=== PATIENT | male | born 1960 | race Caucasian/White ===

== ENCOUNTER 2018-05-03 21:29 | Inpatient (IN) | payer MEDICAID ==
[2018-05-03] MEDS ORDERED: IPRATROPIUM/ALBUTEROL 3 ML DEYVIAL IH ONE (22:16)
--- NOTE | 2018-05-03 22:16 | EDPHY ---
H & P Stated Complaint: wants condom cath and IV lasix Time Seen by Provider: 05/03/18 22:04 HPI/ROS: CHIEF COMPLAINT: Short of breath HISTORY OF PRESENT ILLNESS: This is a 57-year-old male who is transferred from [facility] to the emergency department by ambulance. He tells me that he was hospitalized at [facility] for 3 weeks last month, discharged 1 week ago to [facility]. Apparently was hospitalized for CHF/respiratory failure. He tells me that he was intubated during that hospitalization. Since his arrival at [facility] he states that he has had an increase in his weight , increase in abdominal girth, increase in lower extremity edema, and worsening shortness of breath. He denies chest pain, cough, nasal congestion. REVIEW OF SYSTEMS: A ten system review of systems was performed and is negative with the exception of the items mentioned in the HPI. Past medical history: 1. CHF 2. Atrial fibrillation 3. COPD 4. Morbid obesity 5. Bipolar disease 6. Chronic LE wounds 7. IDA 8. 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 He has no local PCP. Quit smoking cigarettes 15 years ago but resumed smoking 3 days ago. General Appearance: Alert. Vital signs reviewed. Heart rate 102, respiratory 20, blood pressure 118/99, oxygen saturation 94%. Eyes: Pupils equal and round, no conjunctival injection, no discharge. Anicteric. ENT, Mouth: Mucous membranes are moist, no oropharyngeal erythema or edema. Neck: No lymphadenopathy, supple. Respiratory: Lungs sounds are distant, no wheezes, rales, or rhonchi. Cardiovascular: Slightly tachycardic; 2/6 systolic murmur, rub, or gallop. Gastrointestinal: Abdomen is obese and mildly diffusely tender without guarding. Bowel sounds are present. Unable to evaluate for organomegaly due to his body habitus. Skin: Warm and dry, no rashes on exposed skin, normal color. Back: Nontender to palpation over the thoracolumbar spine. No CVAT. Extremities: Dressings on both LEs with erythema visible at top of dressings ( below knee). Neurological: Alert and oriented. Moving all four extremities easily and equally. LYLE. EOMI. Facial expressions symmetric. Psychiatric: Normal affect. No agitation. - Personal History Current Tetanus/Diphtheria Vaccine: Yes - Medical/Surgical History Hx Asthma: No Hx Chronic Respiratory Disease: Yes Hx Diabetes: No Hx Cardiac Disease: Yes Hx Renal Disease: No Hx Cirrhosis: No Hx Alcoholism: No Hx HIV/AIDS: No Hx Splenectomy or Spleen Trauma: No Other PMH: CHF, COPD, A fib - Social History Smoking Status: Current every day smoker Constitutional: Initial Vital Signs Temperature (C) 36.5 C 05/03/18 21:34 Heart Rate 102 H 05/03/18 21:34 Respiratory Rate 20 05/03/18 21:34 Blood Pressure 118/99 H 05/03/18 21:34 O2 Sat (%) 94 05/03/18 21:34 O2 Delivery Mode Nasal Cannula O2 (L/minute) 3 Allergies/Adverse Reactions: latex Allergy (Verified 05/03/18 21:38) Penicillins Allergy (Verified 05/03/18 21:38) Home Medications: Medication Instructions Recorded Albuterol [Proventil Inhaler HFA 2 puffs IH Q3HRS PRN 05/04/18 (*)] Carvedilol [Coreg (*)] 25 mg PO BIDMEAL 05/04/18 Furosemide [Lasix] 40 mg PO BID 05/04/18 Gabapentin [Neurontin 300 MG (*)] 300 mg PO HS 05/04/18 Haloperidol [Haldol 5 MG (*)] 5 mg PO BID 05/04/18 Levalbuterol 1.25 mg [Xopenex 1.25 mg IH Q8HRS PRN 05/04/18 1.25MG Neb (*)] Lisinopril [Zestril 20 mg (*)] 20 mg PO Q2D 05/04/18 Melatonin [Melatonin 3 MG (*)] 3 mg PO HS 05/04/18 Mometasone 220Mcg Inhaler [Asmanex 2 puffs IH BID 05/04/18 Inh (*)] Omeprazole 20 mg PO DAILY 05/04/18 Pregabalin [Lyrica] 25 mg PO BID 05/04/18 Rivaroxaban [Xarelto] 20 mg PO DAILY 05/04/18 Sennosides [Senna Lax] 8.6 mg PO BID 05/04/18 Sodium Cl Nasal [[place] (*)] 2 spray NS Q2HRS PRN 05/04/18 Tiotropium Inhaler [Spiriva 2 puffs IH DAILY 05/04/18 Handihaler] oxyCODONE IR [Oxycodone Ir (*)] 5 - 10 mg PO Q4HRS PRN 05/04/18 Medical Decision Making - Diagnostics EKG Interpretation: EKG interpreted by ED physician. It shows atrial fibrillation, rate 85. ED Course/Re-evaluation: 57 year old male with multiple medical problems, recently admitted to [facility] after an admission at [facility], during which he was treated for sepsis due to LLE cellulitis and metabolic encephalopathy. I was able to review their records in [facility]. Patient tells me that he was intubated during that admission, but I find no evidence of such. He is concerned about worsening CHF. He is on Lasix 40 PO BID. He received dose of Lasix 40 mg IV in ED. Chest xray shows bilateral consolidation--effusion vs atalectasis vs pneumonia, per radiology report. Patient with evidence of CHF will be admitted for diuresis, further evaluation. Acuity of CHF not clear--he has history of chronic systolic heart failure. BNP tonight is 3930, it was over 5000 at [facility]. Oxygenation acceptable on NCO2. He uses 2-3 L at baseline, seems to be doing fine on same. No evidence of infection--he does not meet sepsis criteria and I do not suspect pneumonia. Admitting physician ordering respiratory PCR. Differential Diagnosis: Shortness of breath including but not limited to pulmonary infectious process, COPD, asthma, pulmonary embolus and congestive heart failure. - Data Points Laboratory Results: Laboratory Results 05/03/18 22:30 05/03/18 22:30 Medications Given: Acetaminophen (Tylenol) 650 mg PO Q4HRS PRN PRN Reason: Pain, Mild/Fever, Can Take PO Stop: 10/30/18 23:10 Last Admin: 05/04/18 21:01 Dose: 650 mg Albuterol (Proventil Neb) 3 ml IH Q2HRS PRN PRN Reason: Short of Breath/Dyspnea Stop: 10/31/18 01:46 Last Admin: 05/05/18 06:48 Dose: 3 ml Calcium Carbonate (Tums) 500 - 1,000 mg PO Q2H PRN PRN Reason: INDIGESTION Stop: 11/02/18 19:25 Last Admin: 05/06/18 19:33 Dose: 1,000 mg Carvedilol (Coreg) 25 mg PO BIDMEAL UZIEL Stop: 11/01/18 17:59 Last Admin: 05/08/18 09:41 Dose: 25 mg Diphenhydramine HCl (Benadryl) 25 mg PO Q6HRS PRN PRN Reason: Itching Stop: 10/31/18 03:27 Last Admin: 05/04/18 21:01 Dose: 25 mg Furosemide (Lasix Injection) 40 mg IVP BID@0900,1500 UZIEL Stop: 10/31/18 08:59 Last Admin: 05/08/18 09:43 Dose: 40 mg Gabapentin (Neurontin) 300 mg PO HS UZIEL Stop: 11/01/18 20:59 Last Admin: 05/07/18 20:19 Dose: 300 mg Lisinopril (Zestril) 20 mg PO Q2D UZIEL Stop: 11/01/18 09:44 Last Admin: 05/08/18 09:42 Dose: 20 mg Melatonin (Melatonin) 3 mg PO HS UZIEL Stop: 11/01/18 20:59 Last Admin: 05/07/18 20:19 Dose: 3 mg Olanzapine (Olanzapine) 5 mg PO BID UZIEL Stop: 11/03/18 20:59 Last Admin: 05/08/18 09:42 Dose: 5 mg Oxycodone HCl (Oxycodone Ir) 5 - 10 mg PO Q4HRS PRN PRN Reason: Pain, Breakthrough Stop: 05/15/18 09:38 Last Admin: 05/07/18 20:19 Dose: 5 mg Pantoprazole Sodium (Protonix) 40 mg PO DAILY UZIEL Stop: 11/02/18 08:59 Last Admin: 05/08/18 09:41 Dose: 40 mg Pregabalin (Lyrica) 25 mg PO BID UZIEL Stop: 11/01/18 09:44 Last Admin: 05/08/18 09:41 Dose: 25 mg Rivaroxaban (Xarelto) 20 mg PO DAILY UZIEL Stop: 11/01/18 09:44 Last Admin: 05/08/18 09:41 Dose: 20 mg Senna (Senokot) 1 tab PO BID UZIEL Stop: 11/01/18 20:59 Last Admin: 05/08/18 09:41 Dose: 1 tab Spironolactone (Aldactone) 12.5 mg PO DAILY [facility] Stop: 11/01/18 08:59 Last Admin: 05/08/18 09:42 Dose: 12.5 mg Discontinued Medications Albuterol/Ipratropium (Duoneb) 3 ml IH EDNOW ONE Stop: 05/03/18 22:17 Last Admin: 05/03/18 22:25 Dose: 3 ml Carvedilol (Coreg) 25 mg PO ONCE ONE Stop: 05/05/18 09:43 Last Admin: 05/05/18 10:42 Dose: 25 mg Furosemide (Lasix Injection) 40 mg IVP EDNOW ONE Stop: 05/03/18 22:48 Last Admin: 05/03/18 23:49 Dose: 40 mg Haloperidol (Haldol) 5 mg PO BID UZIEL Stop: 11/01/18 01:44 Last Admin: 05/07/18 09:33 Dose: 5 mg Melatonin (Melatonin) 3 - 6 mg PO HS PRN PRN Reason: Sleep/Insomnia Stop: 11/01/18 01:45 Last Admin: 05/05/18 01:59 Dose: 6 mg Mometasone Furoate (Asmanex) 2 puffs IH BID UZIEL Stop: 11/01/18 09:44 Last Admin: 05/06/18 09:14 Dose: Not Given Oxycodone HCl (Oxycodone Ir) 5 - 10 mg PO Q4HRS PRN PRN Reason: Pain, Severe Able to Take PO Stop: 05/14/18 02:38 Last Admin: 05/04/18 21:00 Dose: 10 mg Tiotropium [place] (Spiriva Handihaler) 18 mcg IH DAILY [facility] Stop: 11/01/18 09:44 Last Admin: 05/06/18 09:14 Dose: Not Given Point of Care Test Results: Chemistry 05/03/18 22:32 POC Troponin I 0.01 ng/mL ng/mL (0.00-0.08) Departure - Departure Disposition: [facility] Acute Clinical Impression: Congestive heart failure (CHF) Qualifiers: Heart failure type: combined systolic and diastolic Heart failure chronicity: acute on chronic Qualified Code(s): I50.43 - Acute on chronic combined systolic (congestive) and diastolic (congestive) heart failure Condition: Fair
[2018-05-03 22:39] LABS: PLATELET COUNT 198 10^3/uL (150-400)
[2018-05-03] MEDS ORDERED: FUROSEMIDE 40 MG/4 ML VIAL IVP ONE (22:47)
[2018-05-03] MEDS ORDERED: ONDANSETRON DISINTEGRATING 4 MG TAB PO PRN (23:11)
[2018-05-03] MEDS ORDERED: ONDANSETRON 4 MG/2 ML VIAL IVP PRN (23:11)
--- NOTE | 2018-05-03 23:30 | CPEKG ---
Test Reason : OPEN Blood Pressure : / mmHG Vent. Rate : 085 BPM Atrial Rate : 000 BPM P-R Int : 340 ms QRS Dur : 183 ms QT Int : 409 ms P-R-T Axes : 000 252 061 degrees QTc Int : 487 ms Atrial fibrillation RBBB and LAFB Confirmed by Cammie Roman ([id number]) on 05/03/2018 11:30:04 PM Referred By: CAMMIE ROMAN Confirmed By:Cammie Roman
[2018-05-03] MEDS: ACETAMINOPHEN 325 MG TAB PO PRN (23:48)
--- NOTE | 2018-05-04 01:36 | PDGENHP ---
History and Physical - Chief Complaint Swelling, shortness of breath - History of Present Illness 57 yo morbidly obese M w/ HFrEF, chronic LE wounds, COPD, CHRF, AF, and BPD presents with complaints of swelling and shortness of breath. He was discharged from [facility] on 04/26 to [facility] after treatment for sepsis due to LLE cellulitis and metabolic encephalopathy. It is also seems he has had very poor control of volume status lately as well. He tells me his lower extremity and abdominal swelling have worsened significantly since discharge. In addition he feels very short of breath. He denies fevers but does feel chills. He also thinks he may have a cold, although he denies specific symptoms such as sore throat or cough. He thinks he has gained 20 lbs this week. I reviewed his discharge summary from [facility]. He was discharged with furosemide 40 mg PO BID. He is also on Xarelto and Coreg for hx of AF. His work-up in the ED is consistent with likely decompensation of CHF, although I am unsure how acute this is. He is being admitted for diuresis. Case discussed with ED physician Dr. Stone; records reviewed and summarized above. History Information - Allergies/Home Medication List Allergies/Adverse Reactions: latex Allergy (Verified 05/03/18 21:38) Penicillins Allergy (Verified 05/03/18 21:38) Home Medications: Lasix 05/03/18 [Last Taken Unknown] Neurontin 05/03/18 [Last Taken Unknown] Oxycodone HCl 05/03/18 [Last Taken Unknown] Prilosec 05/03/18 [Last Taken Unknown] Spiriva Inhaler (RX) 05/03/18 [Last Taken Unknown] Xarelto 05/03/18 [Last Taken Unknown] I have personally reviewed and updated: family history, medical history - Past Medical History atrial fibrillation, CHF, COPD Additional medical history: Chronic LE wounds. Bipolar. IDA - Surgical History Additional surgical history: Knee surgery - Family History Positive for: CAD - Social History Smoking Status: Current every day smoker Review of Systems Review of Systems: ROS: 10pt was reviewed & negative except for what was stated in HPI & below Physical Exam Physical Exam: Temp Pulse Resp BP Pulse Ox 37 C 96 20 100/86 H 95 05/03/18 23:53 03/12/19 23:53 05/03/18 23:53 05/03/18 23:53 05/03/18 23:53 O2 (L/minute) 3 Constitutional: obese, uncomfortable Eyes: PERRL, EOMI Ears, Nose, Mouth, Throat: moist mucous membranes, no oral mucosal ulcers Cardiovascular: regular rate and rhythym, systolic murmur, edema Respiratory: no respiratory distress, reduced air movement, inspiratory crackles Gastrointestinal: normoactive bowel sounds, soft, non-tender abdomen, distension , No guarding, No rebound Skin: warm, other (Erythematous lower extremities L>R) Musculoskeletal: full muscle strength, no muscle tenderness Neurologic: AAOx3, CN II-XII Intact Psychiatric: interacting appropriately, not anxious Lab Data & Imaging Review 05/03/18 22:30 05/03/18 22:30 WBC 7.53 10^3/uL (3.80-9.50) 05/03/18 22:30 RBC 4.73 10^6/uL (4.40-6.38) 05/03/18 22:30 Hgb 10.6 g/dL (13.7-17.5) L 05/03/18 22:30 Hct 37.7 % (40.0-51.0) L 05/03/18 22:30 MCV 79.7 fL (81.5-99.8) L 05/03/18 22:30 MCH 22.4 pg (27.9-34.1) L 05/03/18 22:30 MCHC 28.1 g/dL (32.4-36.7) L 05/03/18 22:30 RDW 21.8 % (11.5-15.2) H 05/03/18 22:30 Plt Count 198 10^3/uL (150-400) 05/03/18 22:30 MPV 8.9 fL (8.7-11.7) 05/03/18 22:30 Neut % (Auto) 67.7 % (39.3-74.2) 05/03/18 22:30 Lymph % (Auto) 12.9 % (15.0-45.0) L 05/03/18 22:30 [place] % (Auto) 13.3 % (4.5-13.0) H 05/03/18 22:30 Eos % (Auto) 5.0 % (0.6-7.6) 05/03/18:30 Baso % (Auto) 0.4 % (0.3-1.7) 05/03/18 22:30 Nucleat RBC Rel Count 0.0 % (0.0-0.2) 05/03/18 22:30 Absolute Neuts (auto) 5.10 10^3/uL (1.70-6.50) 05/03/18 22:30 Absolute Lymphs (auto) 0.97 10^3/uL (1.00-3.00) L 05/03/18: Absolute Monos (auto) 1.00 10^3/uL (0.30-0.80) H 05/03/18:30 Absolute Eos (auto) 0.38 10^3/uL (0.03-0.40) 05/03/18: Absolute Basos (auto) 0.03 10^3/uL (0.02-0.10) 05/03/18 22:30 Absolute Nucleated RBC 0.00 10^3/uL (0-0.01) 05/03/18 22: Immature Gran % 0.7 % (0.0-1.1) 05/03/18: Immature Gran # 0.05 10^3/uL (0.00-0.10) 05/03/18:30 Platelet Estimate ADEQUATE (ADEQ) 05/03/18:30 Polychromasia 1+ H 05/03/18 22:30 Hypochromasia 1+ H 05/03/18 22:30 Sodium 138 mEq/L (135-145) 05/03/18 22:30 Potassium 3.9 mEq/L (3.5-5.2) 05/03/18:30 Chloride 97 mEq/L (97-110) 05/03/18: Carbon Dioxide 37 mEq/l (22-31) H 05/03/18 22:30 Anion Gap 4 mEq/L (6-14) L 05/03/18 22:30 BUN 17 mg/dL (7-23) 05/03/18 22:30 Creatinine 0.8 mg/dL (0.7-1.3) 03/12/19 22:30 Estimated GFR > 60 05/03/18 22:30 Glucose 82 mg/dL (70-100) 05/03/18 22:30 Calcium 8.5 mg/dL (8.5-10.4) 05/03/18 22:30 POC Troponin I 0.01 ng/mL (0.00-0.08) 05/03/18 22:32 NT-Pro-B Natriuret Pep 3930 pg/mL (0-125) H 05/03/18 22:30 Procalcitonin 0.05 ng/mL (0.02-0.10) 05/03/18 22:30 Imaging Review: Imaging Impressions Chest X-Ray 05/03/18 22:16 Impression: 1. Limited study with right lung consolidation and left basilar consolidation, that could be related to effusion, atelectasis, and/or pneumonia. 2. Cardiomegaly. Visualized and Interpreted EKG results: Yes EKG Interpretation: Positive for: other (AF, bifascicular block) Assessment & Plan Assessment: 57 yo morbidly obese M w/ HFrEF, chronic LE wounds, COPD, CHRF, AF, and BPD presents with complaints of swelling and shortness of breath. Plan: 1. Chronic systolic heart failure with acute vs. subacute decompensation - Last EF 30% per January TTE at OSH. He is on appropriate therapy including BB, DEJA, and furosemide 40 mg BID. Patient's BNP on admission is 3930, although it was > 5000 during recent admission at [facility]. He has severe lower extremity edema and weight gain, which will likely require a lengthy stint of IV diuresis. - Admit to PCU - Monitor on telemetry - Continue BB, DEJA - Will double diuretic dose to furosemide 40 mg IV BID, titrate as necessary - Cardiac diet, daily weights, monitor I/O BID 2. CHRF - Multifactorial from CHF, IDA, and COPD. He uses 2-3 L/min as outpatient, he is currently stable on the same. - Continue O2 PRN to maintain O2 sats>89% 3. Dyspnea - I suspect this is mostly due to pulmonary edema. His CXR does demonstrate bilateral opacities but OSH CXR describes these as chronic scarring. Procalcitonin negative and 0/4 SIRS criteria present on admission. - Diuresis as above - Will check respiratory PCR - Albuterol PRN 4. AF - On carvedilol and rivaroxaban as an outpatient. - Monitor on telemetry - Continue home medications pending reconciliation 5. Chronic lower extremity wounds - These are largely related to venous insufficiency. He was treated with 10 days of antibiotics (vancomycin, doxycycline) at [facility] from 04/06-04/16. Procalcitonin negative and 0/4 SIRS criteria present on admission. - Wound care consult placed - No further antibiotics for now 6. COPD - No evidence of acute exacerbation. - Continue home meds pending reconciliation 7. Bipolar disorder - Continue home medications 8. Morbid obesity - BMI > 50 Diet - Cardiac Code - Full Ppx - Xarelto Dispo - Admit under inpatient status
[2018-05-04] MEDS ORDERED: ALBUTEROL 3 ML DEYVIAL IH PRN (01:47)
[2018-05-04] MEDS: oxyCODONE IR 5 MG TAB PO PRN ×3 (02:55→21:00)
[2018-05-04] MEDS: diphenhydrAMINE 25 MG CAP PO PRN ×2 (03:40→21:01)
[2018-05-04 04:36] LABS: PLATELET COUNT 211 10^3/uL (150-400)
[2018-05-04] MEDS: FUROSEMIDE 40 MG/4 ML VIAL IVP SCH ×2 (08:34→15:00)
--- NOTE | 2018-05-04 10:29 | PDMN ---
Medical Necessity Medical necessity: Change to IP, as of 05/04/18, per & MCG M-190;los >2 mn for eval/tx of chronic heart failure w/acute vs subacute decompensation, severe LE edema & dyspnea; requiring further monitoring & IV diuresis/med management; hx COPD, CHF, AFIB, chronic LE wounds
[2018-05-04] MEDS: ACETAMINOPHEN 325 MG TAB PO PRN (21:01)
[2018-05-05] MEDS ORDERED: MELATONIN 3 MG TAB PO PRN (01:46)
[2018-05-05] MEDS: HALOPERIDOL 5 MG TAB PO SCH ×3 (01:59→20:02)
[2018-05-05] MEDS ORDERED: SODIUM CL NASAL 45 ML BTL NS PRN (09:39)
[2018-05-05] MEDS ORDERED: LEVALBUTEROL 1.25 MG/3 ML DEYVIAL IH PRN (09:39)
[2018-05-05] MEDS ORDERED: CARVEDILOL 25 MG TAB PO ONE (09:42)
[2018-05-05] MEDS: RIVAROXABAN 20 MG TAB PO SCH (10:42)
[2018-05-05] MEDS: LISINOPRIL 20 MG TAB PO SCH (10:42)
[2018-05-05] MEDS: FUROSEMIDE 40 MG/4 ML VIAL IVP SCH ×2 (10:43→14:36)
[2018-05-05] MEDS: PREGABALIN 25 MG CAP PO SCH ×2 (10:43→20:02)
[2018-05-05] MEDS: SPIRONOLACTONE 25 MG TAB PO SCH (10:44)
[2018-05-05] MEDS: TIOTROPIUM INHALER 18 MCG/DOSE 5 DOSE/MDI IH SCH (11:46)
[2018-05-05] MEDS: MOMETASONE 220MCG INHALER IH SCH ×2 (11:46→20:58)
--- NOTE | 2018-05-05 12:13 | PDCARCONS ---
Cardiology Consult Reason for Consult: New CHF symptoms Chief Complaint: Dyspnea and fatigue Requesting Physician: Hospitalist team History of Present Illness: 57 year old male with a history of CHF (uncertain on etiology - ischaemic or non ischaemic), AF (on Xarelto with [id number] score of 2), COPD (on supplemental oxygen), HTN, morbid obesity, recent LLE cellulitis w/ sepsis ( finished abx course 03/2018), presents with chief complaint of worsening dyspnea and fatigue for the past month. In the past month, he was hospitalized with LLE cellulitis and sepsis, and was d/c'ed to an acute rehab facility where he was for one week prior to returning to this hospital (different that the cellulitis/ sepsis hospital) for this stay. He reports being diagnosed with CHF 3 years ago with similar symptoms to this admission once in the past. His outpatient CHF meds include spironolactone, carvedilol and lisinopril. He reports additional symptoms of LE edema with skin breakdown and fluid leakage as well as lightheadedness. He denies any chest pains or pressure. No PND or orthopnea has been appreciated. He reports a history of intermittent a-fib that has never been treated with cardioversion, but he has been on anticoagulation. Since his hospital admission, he has had IV lasix therapy and lost 4kg in weight, but reports minimal improvement in symptoms. Atrial fibrillation is noted at present with heart rates >100 bpm. Currently, the patient's weight is down about 4 kg. No complaints of fevers or chills. Lower extremity pain continues to be noted due to the degree of edema noted. At this point, none of the outpatient records from out side hospital were available for review, but the patient did provide much useful information. Remainder of the 12 point review of systems was unremarkable History Information - Allergies/Home Medication List Allergies/Adverse Reactions: latex Allergy (Verified 05/03/18 21:38) Penicillins Allergy (Verified 05/03/18 21:38) Home Medications: Albuterol [Proventil Inhaler HFA (*)] 2 puffs IH Q3HRS PRN 05/04/18 [Last Taken 05/03/18] Carvedilol [Coreg (*)] 25 mg PO BIDMEAL 05/04/18 [Last Taken 05/03/18] Furosemide [Lasix] 40 mg PO BID 05/04/18 [Last Taken 05/03/18] Gabapentin [Neurontin 300 MG (*)] 300 mg PO HS 05/04/18 [Last Taken 05/03/18] Haloperidol [Haldol 5 MG (*)] 5 mg PO BID 05/04/18 [Last Taken 05/03/18] Levalbuterol 1.25 mg [Xopenex 1.25MG Neb (*)] 1.25 mg IH Q8HRS PRN 05/04/18 [ Last Taken 05/03/18] Lisinopril [Zestril 20 mg (*)] 20 mg PO Q2D 05/04/18 [Last Taken 05/02/18] Melatonin [Melatonin 3 MG (*)] 3 mg PO HS 05/04/18 [Last Taken 05/03/18] Mometasone 220Mcg Inhaler [Asmanex Inh (*)] 2 puffs IH BID 05/04/18 [Last Taken 05/03/18] Omeprazole 20 mg PO DAILY 05/04/18 [Last Taken 05/03/18] Pregabalin [Lyrica] 25 mg PO BID 05/04/18 [Last Taken 05/03/18] Rivaroxaban [Xarelto] 20 mg PO DAILY 05/04/18 [Last Taken 05/03/18] Sennosides [Senna Lax] 8.6 mg PO BID 05/04/18 [Last Taken 05/03/18] Sodium Cl Nasal [[facility] (*)] 2 spray NS Q2HRS PRN 05/04/18 [Last Taken 02/09] Tiotropium Inhaler [Spiriva Handihaler] 2 puffs IH DAILY 05/04/18 [Last Taken ] oxyCODONE IR [Oxycodone Ir (*)] 5 - 10 mg PO Q4HRS PRN 05/04/18 [Last Taken 02/09] I have personally reviewed and updated: family history, medical history, social history, surgical history Past Medical History: - Past Medical History atrial fibrillation, asthma, hypertension Additional medical history: Bipolar disorder - Surgical History Reports: no pertinent surgical hx - Family History Positive for: non-pertinent - Social History Smoking Status: Current every day smoker Alcohol Use: None Drug Use: None Cardiac History - Cardiac History Cardiac Risk Factors: hypertension (>140/90), current cigarette smoker, male Timing/Duration: Weeks Severity: severe Severity Scale: 8 Location: substernal Activities at Onset: activity Modifying Factors: improves with: exercise, oxygen Associated Symptoms: shortness of breath, weakness Age in Years: < 65 Sex: Male Congestive Heart Failure History: Yes Hypertension History: Yes Stroke/TIA/Thromboembolism History: No Vascular Disease History: No Diabetes Mellitus: No [id number] Score: 2 Physical Exam Physical Exam: Temp Pulse Resp BP Pulse Ox 36.5 C 95 16 115/91 H 92 05/05/18 07:54 05/05/18 10:42 05/05/18 07:54 05/05/18 10:42 05/05/18 07:54 O2 (L/minute) 4 Constitutional: chronically ill appearing, obese Eyes: PERRL, EOMI Ears, Nose, Mouth, Throat: moist mucous membranes, ears appear normal Cardiovascular: irregularly irregular, JVD, tachycardia, edema Peripheral Pulses: 1+: dorsalis-pedis (R), dorsalis-pedis (L) Respiratory: reduced air movement, inspiratory crackles Gastrointestinal: soft, non-tender abdomen Skin: warm, mottled, rash, other (edema) Musculoskeletal: full muscle strength, no muscle tenderness Neurologic: AAOx3, sensation intact bilaterally, CN II-XII Intact Psychiatric: interacting appropriately, encephalopathic Lab and Imaging 05/04/18 04:02 05/04/18 04:02 WBC 7.46 10^3/uL (3.80-9.50) 05/04/18 04:02 RBC 4.59 10^6/uL (4.40-6.38) 05/04/18 04:02 Hgb 10.3 g/dL (13.7-17.5) L 05/04/18 04:02 Hct 36.4 % (40.0-51.0) L 05/04/18 04:02 MCV 79.3 fL (81.5-99.8) L 05/04/18 04:02 MCH 22.4 pg (27.9-34.1) L 05/04/18 04:02 MCHC 28.3 g/dL (32.4-36.7) L 05/04/18 04:02 RDW 21.8 % (11.5-15.2) H 05/04/18 04:02 Plt Count 211 10^3/uL (150-400) 05/04/18 04:02 MPV 9.3 fL (8.7-11.7) 05/04/18 04:02 Neut % (Auto) 69.1 % (39.3-74.2) 05/04/18 04:02 Lymph % (Auto) 13.1 % (15.0-45.0) L 05/04/18 04:02 [place] % (Auto) 11.4 % (4.5-13.0) 05/04/18 04:02 Eos % (Auto) 5.2 % (0.6-7.6) 05/04/18 04:02 Baso % (Auto) 0.5 % (0.3-1.7) 05/04/18 04:02 Nucleat RBC Rel Count 0.0 % (0.0-0.2) 05/04/18 04:02 Absolute Neuts (auto) 5.15 10^3/uL (1.70-6.50) 05/04/18 04:02 Absolute Lymphs (auto) 0.98 10^3/uL (1.00-3.00) L 05/04/18 04:02 Absolute Monos (auto) 0.85 10^3/uL (0.30-0.80) H 05/04/18 04:02 Absolute Eos (auto) 0.39 10^3/uL (0.03-0.40) 05/04/18 04:02 Absolute Basos (auto) 0.04 10^3/uL (0.02-0.10) 05/04/18 04:02 Absolute Nucleated RBC 0.00 10^3/uL (0-0.01) 05/04/18 04:02 Immature Gran % 0.7 % (0.0-1.1) 05/04/18 04:02 Immature Gran # 0.05 10^3/uL (0.00-0.10) 05/04/18 04:02 Platelet Estimate DECREASED (ADEQ) L 05/04/18 04:02 Polychromasia 1+ H 05/04/18 04:02 Hypochromasia 1+ H 05/04/18 04:02 Microcytic Cells 1+ H 05/04/18 04:02 VBG Lactic Acid 1.5 mmol/L (0.7-2.1) 05/04/18 04:02 Sodium 139 mEq/L (135-145) 05/04/18 04:02 Potassium 4.0 mEq/L (3.5-5.2) 05/04/18 04:02 Chloride 96 mEq/L (97-110) L 05/04/18 04:02 Carbon Dioxide 35 mEq/l (22-31) H 05/04/18 04:02 Anion Gap 8 mEq/L (6-14) 05/04/18 04:02 BUN 16 mg/dL (7-23) 05/04/18 04:02 Creatinine 0.7 mg/dL (0.7-1.3) 05/04/18 04:02 Estimated GFR > 60 05/04/18 04:02 Glucose 122 mg/dL (70-100) H 05/04/18 04:02 Calcium 8.5 mg/dL (8.5-10.4) 05/04/18 04:02 Phosphorus 3.2 mg/dL (2.5-4.5) 05/04/18 04:02 Magnesium 2.0 mg/dL (1.6-2.3) 05/04/18 04:02 POC Troponin I 0.01 ng/mL (0.00-0.08) 05/03/18 22:32 NT-Pro-B Natriuret Pep 3930 pg/mL (0-125) H 05/03/18 22:30 Procalcitonin 0.05 ng/mL (0.02-0.10) 05/03/18 22:30 Visualized and Interpreted Chest x-ray results: Yes Chest X-ray Interpretation: infiltrate, effusion Visualized and Interpreted EKG results: Yes EKG additional interpertation: atrial fibrillation Telemetry: atrial fibrillation Echocardiogram: pending A/P Assessment: Patient is a 57 y/o male with CHF (uncertain etiology at this point in time), atrial fibrillation (on anticoagulation), HTN, morbid obesity, and recent admission to OSH with lower extremity cellulitis and possible sepsis. Today, the patient seems to have recovered from the infection, but there is ongoing, acute CHF symptoms noted with ongoing weight elevation of about 30 pounds (per patient reports). IV diuresis continues, and more is needed with renal tolerance noted. Ongoing atrial fibrillation with somewhat controlled rates. Echocardiography has been ordered to ensure that there is not a new drop in systolic function noted (as well as valve morphology). Would continue therapy on Coreg, aldactone, and spironolactone for HTN in the setting of CHF. Some degree of heart rate control with the beta blockers is noted. Would not subject the patient to cardioversion at present (there is descent rate control noted) given the likelihood that the patient will simply go right back into the arrhythmia. Would continue DOAC therapy for CVA prophylaxis. Plan: (1) Aggressive IV diuresis (2) Continue antihypertension therapy as at present (3) Echocardiography is pending (4) Ambulation as tolerated (5) DOAC therapy to continue
--- NOTE | 2018-05-05 14:12 | ASMTCMCOM ---
CM Note CM Note Notes: 05/05/2018 Case Management Note Discussed pt during rounds this morning. Pt admitted for dyspnea and possible left leg cellulitis. Pt is on a 30 day stay at [facility] from [facility]. Faxed updates to [facility]. David visited onsite. Please see spiritual care note. Case Management d/c poc: return to [facility]. Case Management to follow. Date Signed: 05/05/2018 02:11 PM Electronically Signed By:Antonia Hopson RN
--- NOTE | 2018-05-05 15:35 | WOCRNPDOC ---
WOCRN Advanced Assessment Note - Skin Integrity Problem, Advanced Assess Left Lower Leg Venous Stasis Ulcer Dressing Type: ABD Pad, Kerlix, Xeroform Dressing Description: Intact, Shadowed Exudate Amount: Minimal Exudate Color: Yellow, Brown Exudate Characteristic(s): Serosanguinous Integumentary Issue Intervention: Dressing Removed, Mechanical Debridement Cleo Wound Tissue: Erythema, Swollen, Hemosiderin Staining (red (not brown)), Venous Dermatitis, Shiny, Xerotic, Painful/Tender Cleo Wound Swelling: Mild Wound Bed Color: Brown, Red, Yellow Wound Bed Constitution: Granulation Tissue, Red/Byers - Non Granular Tissue (50%) , Adhered Slough (20%) Wound Edges: Epithelizing, Attached, Irregular Site Odor: Moderate, Pungent Site Measurement - Head-to-Toe Length X Width X Depth (cm): [id number] Pulse Location & Description: 2+ DP Extremity Temperature: Warm Lymphedema Present: No (negative stemmers) Peripheral Edema Location & Description: 2+ BLE including left foot Skin Integrity Problem Comment: Removed dressing that was adhered to wound beds and dried. Extensive loose slough mechanically debrided and cleaned with ns and gauze revealing a mostly healing and healthy wound bed. All of area is epithelizing and healing. Two small areas of slough on anterior and one on posterior lower leg remain. Will initiate autolytic debridement with honey dressing to facilitate removal of remaining slough filled areas. Patient education about venous stasis done. Discussed compression socks and plan of care. Patient is agreeable to try compression. Calf circumference is 46.5. Spandigrip size F initiated for medium compression. Wound care will follow. Sobeida MARTINEZ in room and assisted with care. Right Lower Leg Venous Stasis Ulcer Dressing Type: ABD Pad, Kerlix, Xeroform Dressing Description: Intact Exudate Amount: Scant Exudate Color: Yellow Exudate Characteristic(s): Serosanguinous Integumentary Issue Intervention: Dressing Removed Cleo Wound Tissue: Erythema, Swollen, Scaly, Hemosiderin Staining, Venous Dermatitis, Shiny Wound Bed Constitution: Red/Byers - Non Granular Tissue (80%), Adhered Slough (20 %) Wound Edges: Epithelizing Site Odor: Moderate, Pungent Site Measurement - Head-to-Toe Length X Width X Depth (cm): 6x5.4x0.2 Pulse Location & Description: 2+ DP Extremity Temperature: Warm Skin Integrity Problem Comment: Cleaned with ns and gauze with mechanical debridement of wound bed. Calf circumference is 48. Spandigrip size F initiated.
--- NOTE | 2018-05-05 18:20 | HOSPPROG ---
Hospitalist Progress Note Assessment/Plan: * Acute on chronic systolic CHF - EF 30% -IV lasix -d/w Dr Avendano - cardiology consulted -repeat ECHO * Chronic respiratory failure - baseline 2-3L -suspect mostly obesity hypoventilation * Morbid obesity BMI 47 * Afib -coreg, Xarelto * Chronic lower extremity wounds due to venous stasis -appreciate wound care -doubt currently infected * COPD * Bipolar * Microcytic anemia -check iron studies Subjective: Doing better Objective: Vital Signs Temp Pulse Resp BP Pulse Ox 37.4 C 88 18 102/73 94 05/05/18 16:00 05/05/18 16:00 05/05/18 16:00 05/05/18 16:00 05/05/18 16:00 Laboratory Results 05/04/18 04:02 05/04/18 04:02 05/04/18 05/05/18 05/06/18 05:59 05:59 05:59 Intake Total 350 Output Total 1550 1100 2375 Balance -1200 1100 -6038 d/w Dr. Avendano as above CXR viewed, my personal interpretation is - CHF > PNA - Physical Exam Constitutional: no apparent distress, appears nourished, not in pain Cardiovascular: regular rate and rhythym, no murmur, rub, or gallop, edema (3+) Respiratory: no respiratory distress, no rales or rhonchi, clear to auscultation Gastrointestinal: normoactive bowel sounds, soft, non-tender abdomen, no palpable masses Skin: other (chronic venous stasis changes to LE) Neurologic: AAOx3, sensation intact bilaterally Psychiatric: interacting appropriately, not anxious, not encephalopathic, thought process linear ICD10 Worksheet Patient Problems: Problems Problem Status Onset Congestive heart failure (CHF) Acute
[2018-05-05] MEDS: CARVEDILOL 25 MG TAB PO SCH (18:50)
[2018-05-05] MEDS: GABAPENTIN 300 MG CAP PO SCH (20:02)
[2018-05-05] MEDS: SENNOSIDES 1 TAB PO SCH (20:02)
[2018-05-05] MEDS: MELATONIN 3 MG TAB PO SCH (20:02)
[2018-05-06] MEDS: TIOTROPIUM INHALER 18 MCG/DOSE 5 DOSE/MDI IH SCH (09:14)
[2018-05-06] MEDS: MOMETASONE 220MCG INHALER IH SCH (09:14)
[2018-05-06] MEDS: FUROSEMIDE 40 MG/4 ML VIAL IVP SCH ×2 (09:52→14:27)
[2018-05-06] MEDS: HALOPERIDOL 5 MG TAB PO SCH ×2 (09:52→19:42)
[2018-05-06] MEDS: RIVAROXABAN 20 MG TAB PO SCH (09:52)
[2018-05-06] MEDS: SENNOSIDES 1 TAB PO SCH ×2 (09:53→19:53)
[2018-05-06] MEDS: CARVEDILOL 25 MG TAB PO SCH ×2 (09:53→17:26)
[2018-05-06] MEDS: PANTOPRAZOLE SODIUM 40 MG TAB PO SCH (09:53)
[2018-05-06] MEDS: SPIRONOLACTONE 25 MG TAB PO SCH (09:53)
[2018-05-06] MEDS: PREGABALIN 25 MG CAP PO SCH ×2 (10:00→19:54)
--- NOTE | 2018-05-06 12:53 | PDCARPN ---
Cardiology Progress Note Chief Complaint: Patient doing better today. Fair sleep overnight. Breathing is improved Assessment/Plan: Assessment: 05-07-18 Patient doing better today with about 3 liters of fluid off over last 24 hours. Renal function is unchanged. Weight are expectedly down. Breathing is better (according to the patient). No chest pains or pressure. No obvious PND or orthopnea (patient lying flat in bed) at this time. Heart rates are <90 bpm today. Patient was up in chair earlier, and is wanting to have shower today. 05-06-18 57 year old male with a history of CHF (uncertain on etiology - ischaemic or non ischaemic), AF (on Xarelto with [id number] score of 2), COPD (on supplemental oxygen), HTN, morbid obesity, recent LLE cellulitis w/ sepsis ( finished abx course 03/2018), presents with chief complaint of worsening dyspnea and fatigue for the past month. In the past month, he was hospitalized with LLE cellulitis and sepsis, and was d/c'ed to an acute rehab facility where he was for one week prior to returning to this hospital (different that the cellulitis/ sepsis hospital) for this stay. He reports being diagnosed with CHF 3 years ago with similar symptoms to this admission once in the past. His outpatient CHF meds include spironolactone, carvedilol and lisinopril. He reports additional symptoms of LE edema with skin breakdown and fluid leakage as well as lightheadedness. He denies any chest pains or pressure. No PND or orthopnea has been appreciated. He reports a history of intermittent a-fib that has never been treated with cardioversion, but he has been on anticoagulation. Since his hospital admission, he has had IV lasix therapy and lost 4kg in weight, but reports minimal improvement in symptoms. Atrial fibrillation is noted at present with heart rates >100 bpm. Currently, the patient's weight is down about 4 kg. No complaints of fevers or chills. Lower extremity pain continues to be noted due to the degree of edema noted. At this point, none of the outpatient records from out side hospital were available for review, but the patient did provide much useful information. Plan: (1) Maintain aggressive IV diuresis (2) Would continue Coreg, Lisinopril, and Spironolactone given past history of CHF (3) IV lasix to continue with close assessment of electrolytes and renal function (4) Would encourage ambulation - out of bed and in chair at minimum (5) Xarelto should continue with atrial fibrillation as noted Subjective: Patient feeling better today Reviewed/Discussed With: hospitalist Objective: Vital Signs (8 Hrs) Temp Pulse Resp BP Pulse Ox 05/06/18 12:00 36.5 C 88 16 95/67 L 92 05/06/18 09:53 96 118/91 H 05/06/18 08:00 38.0 C 94 16 97/74 L 90 L Intake/Output (24 Hrs) 05/05/18 05/06/18 05/07/18 05:59 05:59 05:59 Intake Total 500 Output Total 1100 3475 300 Balance -1100 -0442 -300 Intake: Oral (ml) 500 Output: Urine (ml) 1100 3475 300 Urinal 1100 3475 300 Other: Weight 146.329 kg Number of Voids Urinal 2 3 1 Result Diagrams: 05/04/18 04:02 05/06/18 03:50 Telemetry: atrial fibrillation with RBBB pattern - Physical Exam Constitutional: WDWN, obese Eyes: PERRL, EOMI Ears, Nose, Mouth, Throat: moist mucous membranes Cardiovascular: systolic murmur, irregularly irregular, jugular vein distention , pulses symmetric bilat Peripheral Pulses: 2+: dorsalis-pedis (R), dorsalis-pedis (L) Respiratory: reduced air movement, expiratory wheeze, dullness to percussion Gastrointestinal: normoactive bowel sounds Skin: erythema, rash, other (moderate BLE edema) Musculoskeletal: muscular tenderness Neurologic: AAOx3, CN II-XII grossly intact Psychiatric: cooperative, interactive, following commands ICD10 Worksheet Patient Problems: Problems Problem Status Onset Congestive heart failure (CHF) Acute - ICD10 Problem Qualifiers (1) Congestive heart failure (CHF) Qualifiers: Heart failure type: combined systolic and diastolic Heart failure chronicity: acute on chronic Qualified Code(s): I50.43 - Acute on chronic combined systolic (congestive) and diastolic (congestive) heart failure
--- NOTE | 2018-05-06 17:56 | HOSPPROG ---
Hospitalist Progress Note Assessment/Plan: * Acute on chronic systolic CHF - EF 30% -IV lasix -ECHO pending * Chronic respiratory failure - baseline 2-3L -suspect obesity hypoventilation * Morbid obesity BMI 47 * Afib -Pradeep rubi * Chronic lower extremity wounds due to venous stasis -appreciate wound care -doubt currently infected * COPD * Bipolar -Haldol * Microcytic anemia -outpatient GI eval Subjective: Feeling much better, bender hand Objective: Vital Signs Temp Pulse Resp BP Pulse Ox 36.4 C 84 16 108/64 91 L 05/06/18 15:09 05/06/18 15:09 05/06/18 15:09 05/06/18 15:09 05/06/18 15:09 Laboratory Results 05/04/18 04:02 05/06/18 03:50 05/05/18 05/06/18 05/07/18 05:59 05:59 05:59 Intake Total 500 680 Output Total 1100 3475 650 Balance -1100 -2975 30 d/w Dr. Avendano - continue current level of diuresis tele reviewed - rate controlled afib - Physical Exam Constitutional: no apparent distress, appears nourished, not in pain Cardiovascular: regular rate and rhythym, no murmur, rub, or gallop, edema (3+) Respiratory: no respiratory distress, no rales or rhonchi, clear to auscultation Gastrointestinal: normoactive bowel sounds, soft, non-tender abdomen, no palpable masses Skin: no rashes or abrasions, no fluctuance, no induration Neurologic: AAOx3, sensation intact bilaterally Psychiatric: interacting appropriately, not anxious, not encephalopathic, thought process linear ICD10 Worksheet Patient Problems: Problems Problem Status Onset Congestive heart failure (CHF) Acute
[2018-05-06] MEDS: CALCIUM CARBONATE 500 MG CHEWABLE TAB PO PRN (19:33)
[2018-05-06] MEDS: GABAPENTIN 300 MG CAP PO SCH (19:53)
[2018-05-06] MEDS: oxyCODONE IR 5 MG TAB PO PRN ×2 (19:54→20:56)
[2018-05-06] MEDS: MELATONIN 3 MG TAB PO SCH (19:54)
[2018-05-07] MEDS: FUROSEMIDE 40 MG/4 ML VIAL IVP SCH ×2 (09:32→15:25)
[2018-05-07] MEDS: CARVEDILOL 25 MG TAB PO SCH ×2 (09:32→19:24)
[2018-05-07] MEDS: SENNOSIDES 1 TAB PO SCH ×2 (09:33→20:19)
[2018-05-07] MEDS: HALOPERIDOL 5 MG TAB PO SCH (09:33)
[2018-05-07] MEDS: RIVAROXABAN 20 MG TAB PO SCH (09:33)
[2018-05-07] MEDS: PREGABALIN 25 MG CAP PO SCH ×2 (09:33→20:19)
[2018-05-07] MEDS: SPIRONOLACTONE 25 MG TAB PO SCH (09:33)
[2018-05-07] MEDS: PANTOPRAZOLE SODIUM 40 MG TAB PO SCH (09:33)
[2018-05-07] MEDS: LISINOPRIL 20 MG TAB PO SCH (10:12)
--- NOTE | 2018-05-07 10:18 | PDCARPN ---
Cardiology Progress Note Chief Complaint: Dyspnea Assessment/Plan: Assessment: 05-07-18 Patient doing better today with about 3 liters of fluid off. Renal function is stable. Weight is down now 145.6 KG. Breathing is better. No chest pains or pressure. No obvious PND or orthopnea. Heart rates in the 80's bpm today. Patient has been up in chair. Improving Liam is a 57 year old male with a history of CHF, A Fib (on Xarelto with [id number] score of 2), COPD (on supplemental oxygen), HTN, morbid obesity, recent LLE cellulitis w/ sepsis (finished abx course 03/2018), presents with worsening dyspnea and fatigue for the past month. He was hospitalized with LLE cellulitis and sepsis recently, and was d/c'd to an acute rehab facility where he was for one week prior to returning to this hospital. He reports being diagnosed with CHF 3 years ago with similar symptoms once previously. His outpatient CHF meds include spironolactone, carvedilol and lisinopril. He denies any chest pains or pressure. No PND or orthopnea has been appreciated. He reports having a history of intermittent a-fib that has been treated on anticoagulation. IV lasix therapy has been successful with a 5kg in weight loss , and now less SOB. Atrial fibrillation is noted 80's today. Lower extremity edema noted. Improving. Plan per Dr Gen Avendano: (1) Maintain aggressive IV diuresis (2) Would continue Coreg, Lisinopril, and Spironolactone given past history of CHF (3) IV lasix to continue with close assessment of electrolytes and renal function (4) Would encourage ambulation - out of bed and in chair at minimum (5) Xarelto should continue with atrial fibrillation as noted 05/07/18 13:55 Subjective: "Better today" Reviewed/Discussed With: multidisciplinary team Time Spent with Patient: greater than 25 minutes Time Spent with Patient: Greater than 25 minutes spent on this patients care, greater than 50% of time spent counseling, educating, and coordinating care regarding the above mentioned plan. Objective: Vital Signs (8 Hrs) Temp Pulse Resp BP Pulse Ox 05/07/18 10:12 108/80 05/07/18 09:32 87 98/76 L 05/07/18 08:00 36.8 C 94 18 123/68 H 98 05/07/18 03:46 36.9 C 142 H 16 105/64 95 Intake/Output (24 Hrs) 05/06/18 05/07/18 05/08/18 05:59 05:59 05:59 Intake Total 500 1420 Output Total 3475 1275 400 Balance -2975 145 -400 Intake: Oral (ml) 500 1420 Output: Urine (ml) 3475 1275 400 Urinal 3475 1275 400 Other: Weight 146.329 kg 145.6 kg Intake Quantity Yes Sufficient Number of Voids Urinal 3 2 1 Number of Stools Urinal 1 Result Diagrams: 05/04/18 04:02 05/07/18 03:45 - Physical Exam Constitutional: no apparent distress, obese Cardiovascular: no rubs, no gallops, irregularly irregular Respiratory: no crackles, no wheezes, reduced air movement Skin: warm, other (2+ Edema) Neurologic: AAOx3 Psychiatric: cooperative, interactive ICD10 Worksheet Patient Problems: Problems Problem Status Onset Congestive heart failure (CHF) Acute
--- NOTE | 2018-05-07 15:31 | HOSPPROG ---
Hospitalist Progress Note Assessment/Plan: * Acute on chronic systolic CHF - EF 30% -IV lasix -check ECHO * Chronic respiratory failure - baseline 2-3L -suspect mostly obesity hypoventilation * Morbid obesity BMI 47 * Afib -coreg, Xarelto * Chronic lower extremity wounds due to venous stasis -appreciate wound care -doubt currently infected * COPD * Bipolar -per nursing not doing well on Haldol -severe anxiety alternating with severe somnolence -change to PO Zyprexa -consider inpatient psych consult if this remains an issue * Microcytic anemia -outpatient GI eval Subjective: Still very swollen, no enough fluid off yet to return to BM Objective: Vital Signs Temp Pulse Resp BP Pulse Ox 36.8 C 99 18 112/62 93 05/07/18 11:28 05/07/18 11:28 05/07/18 11:28 05/07/18 11:28 05/07/18 11:28 Laboratory Results 05/04/18 04:02 05/07/18 03:45 05/06/18 05/07/18 05/08/18 05:59 05:59 05:59 Intake Total 500 1420 Output Total 3475 1275 400 Balance -2975 145 -400 - Physical Exam Constitutional: no apparent distress, appears nourished, not in pain Cardiovascular: regular rate and rhythym, no murmur, rub, or gallop, edema (3+) Respiratory: no respiratory distress, no rales or rhonchi, clear to auscultation Gastrointestinal: normoactive bowel sounds, soft, non-tender abdomen, no palpable masses Skin: no rashes or abrasions, no fluctuance, no induration Neurologic: AAOx3, sensation intact bilaterally Psychiatric: interacting appropriately, not anxious, not encephalopathic, thought process linear ICD10 Worksheet Patient Problems: Problems Problem Status Onset Congestive heart failure (CHF) Acute
[2018-05-07] MEDS: GABAPENTIN 300 MG CAP PO SCH (20:19)
[2018-05-07] MEDS: oxyCODONE IR 5 MG TAB PO PRN (20:19)
[2018-05-07] MEDS: OLANZapine 5 MG TAB PO SCH (20:19)
[2018-05-07] MEDS: MELATONIN 3 MG TAB PO SCH (20:19)
--- NOTE | 2018-05-08 09:40 | SOAPPROG ---
SOAP Progress Note Assessment/Plan: Assessment: 1. CHF. Patient diuresing well on current meds. Will add support hose to help peripheral edema. BUN creatinine are stable. Activity as tolerated . 2. Atrial fibrillation on chronic Xarelto no bleeding issues. Plan: As ordered. 05/08/18 09:39 Subjective: Patient is doing well this morning. No cardiovascular complaints. Discussed with RN and will try to get support hose on his legs. Will continue current meds. He has been diuresing well until yesterday. No changes at this time. Objective: Vital Signs Temp Pulse Resp BP Pulse Ox 36.7 C 93 13 95/70 L 92 05/08/18 07:32 05/08/18 07:32 05/08/18 07:32 05/08/18 07:32 05/08/18 07:32 Laboratory Results 05/04/18 04:02 05/08/18 03:50 05/07/18 05/08/18 05/09/18 05:59 05:59 05:59 Intake Total 1420 3400 Output Total 1275 3945 Balance 145 -545 Physical Exam - Physical Exam Respiratory: lungs clear (In bed.) Cardiac/Chest: edema (1+ edema patient continues to have bandages on his shins from prior cellulitis. Will try to place support hose.), irregularly irregular ICD10 Worksheet Patient Problems: Problems Problem Status Onset Congestive heart failure (CHF) Acute
[2018-05-08] MEDS: PREGABALIN 25 MG CAP PO SCH ×2 (09:41→20:46)
[2018-05-08] MEDS: CARVEDILOL 25 MG TAB PO SCH ×2 (09:41→18:10)
[2018-05-08] MEDS: SENNOSIDES 1 TAB PO SCH ×2 (09:41→20:46)
[2018-05-08] MEDS: PANTOPRAZOLE SODIUM 40 MG TAB PO SCH (09:41)
[2018-05-08] MEDS: RIVAROXABAN 20 MG TAB PO SCH (09:41)
[2018-05-08] MEDS: OLANZapine 5 MG TAB PO SCH ×2 (09:42→20:45)
[2018-05-08] MEDS: SPIRONOLACTONE 25 MG TAB PO SCH (09:42)
[2018-05-08] MEDS: LISINOPRIL 20 MG TAB PO SCH (09:42)
[2018-05-08] MEDS: FUROSEMIDE 40 MG/4 ML VIAL IVP SCH ×2 (09:43→18:10)
--- NOTE | 2018-05-08 12:21 | ASMTCMCOM ---
CM Note CM Note Notes: 05/08/2018 Case Management Note Discussed pt during rounds today. Pt tolerating switch to Zyprexa from Haldol well. Elsie Sheldon consult on Wednesday. Faxed updates to [facility]. Case Management d/c poc: [facility] to complete 30 day stay. Case Management to follow. Date Signed: 05/08/2018 12:21 PM Electronically Signed By:Antonia Hopson RN
--- NOTE | 2018-05-08 15:59 | ECHO ---
[email or web address] [address] [address] Main: [phone] Echocardiography Examination Transthoracic Name: CHAYO PARSONS MR#: [id number] Study Date: 05/08/2018 Study Time: 01:33 PM Date of : 1960 Age: 57 year(s) Height: 177.8 cm (70 in.) Weight: 145.15 kg (320 lb.) BSA: 2.55 m2 Gender: Male Examination: Echo Contrast: Image Quality: Fair Rhythm: Atrial fibrillation Heart Rate: 95 bpm BP: 88 mmHg/69 mmHg Indication: CHF, Morbid Obesity, Atrial Fibrillation Procedure Staff Referring Physician: Debubblizer: Carroll Rodriguez RDCS Reading Physician: Kai Joyce MD Requesting Provider: Indication: CHF, Morbid Obesity, Atrial Fibrillation Measurements Chambers AV/MV Label Value Normal Value Label Value Normal Value EF lower range (%) 30 % AV PGmax 9 mmHg EF upper range (%) 35 % AV PGmean 6 mmHg IVSd, 2D 1 cm (0.6cm - 1.1cm) AV Vmax 1.54 m/s IVSd, MM 1.2 cm (0.6cm - 0.9cm) IRINEO (continuity eq. 1.7 cm2 LVDd, 2D 6.6 cm (4.2cm - 5.9cm) Vmax) LVDd, MM 7.8 cm (4.2cm - 5.9cm) IRINEO D (continuity eq. 1.8 cm2 LVDs, 2D 5.5 cm (2.1cm - 4cm) VTI) LVDs, MM 6.3 cm (2cm - 3.8cm) MR (ERO) 0.33 cm2 LVEF visual 30 % MR PISA Alias V. 29 cm/s LVEF, 2D 35 % (54% - 74%) MR PISA Radius 0.9 cm LVEF, BP 29 % (55% - 70%) MR Reg. Fraction 8 % LVEF, MM 37 % (55% - 70%) MR Reg. Volume 39 ml LVEF, MOD2 21 % (55% - 70%) MR Vmax 4.58 m/s LVEF, MOD4 36 % (55% - 70%) MR VTI 118 cm LVOT PGmax 2 mmHg MV Tami 3.8 cm LVOT PGmean 1 mmHg MV PGmax 8 mmHg LVOT Vmax 0.7 m/s (0.7m/s - 1.1m/s) MV PGmean 3 mmHg LVOT Vmean 0.45 m/s MV VTI 45.6 cm LVOTd 2.2 cm (1.9cm - 2.1cm) MVA D (continuity eq.) 1.1 cm2 LVPWd, 2D 1.2 cm (0.6cm - 1cm) TV/PV Patient: CHAYO PARSONS Study Date: 05/08/2018 Page 1 of 3 01:33 PM LVPWd, MM 1.4 cm (0.6cm - 1cm) Label Value Normal Value RVDd, 2D 4.5 cm (1.9cm - 3.8cm) RA Pressure 10 mmHg LA Area, A2C 27.7 cm2 (0cm2 - 20cm2) RVSP 32 mmHg LA Volume, A2C 92 ml (18ml - 58ml) TR Pmax 22 mmHg LA Volume, A4C 101 ml (16ml - 34ml) TR Vmax 2.36 m/s LA Volume, BP 99 ml (18ml - 58ml) PV PGmax 4 mmHg LAD Index, 2D 1.88 cm/m2 PV Vmax, Caliper 0.94 m/s (0.6m/s - 0.9m/s) LADs, 2D 4.8 cm (3cm - 4cm) LAESV index, BP 38.8 ml/m2 RA Area 29 cm2 Additional Vessels Label Value Normal Value AoRoot, MM 4.4 cm (2.2cm - 3.7cm) Conclusions Left Ventricle: There is apical septal, apical cap and apical lateral hypokinesis.. EF range is estimated at 30 % - 35 %. There is paradoxic septal motion suggestive of bundle branch block, paced cardiac rhythm, or prior cardiac surgery. Left Atrium: The left atrium is mildly dilated. Mitral Valve: Mild mitral regurgitation. Tricuspid Valve: Mild tricuspid regurgitation. Right Ventricular systolic pressure is measured at 32 mmHg. Findings Left Ventricle: There is apical septal, apical cap and apical lateral hypokinesis.. Left ventricle is normal in size. Severely reduced systolic left ventricular function. The EF is visually estimated to be 30 %. EF range is estimated at 30 % - 35 %. Left ventricle wall thickness is normal. There is paradoxic septal motion suggestive of bundle branch block, paced cardiac rhythm, or prior cardiac surgery. Unable to assess Diastolic Dysfunction due to atrial fibrillation/a flutter. Right Ventricle: Normal size right ventricle. Moderately to severely reduced RV function. Left Atrium: The left atrium is mildly dilated. Right Atrium Measurements RA Area is 29.0 cm2. Mitral Valve: Mitral valve appears structurally normal. Mild mitral regurgitation. Aortic Valve: No significant aortic valve regurgitation. There is no aortic stenosis. Aortic Valve Measurements AV Vmax is 1.54 m/s. AV PGmean is 6 mmHg. Tricuspid Valve: Mild tricuspid regurgitation. Right Ventricular systolic pressure is measured at 32 mmHg. Pulmonary artery pressure normal. Patient: CHAYO PARSONS Study Date: 05/08/2018 Page 2 of 3 01:33 PM Pulmonic Valve: Technically difficult assessment of pulmonary regurgitation. Aorta: The aorta is normal. The aortic root size in M-mode measures 4.4 cm. Aorta Measurements AoRoot, MM is 4.4 cm. Pericardium: The pericardium is normal in appearance. Exam Details Procedure Ordered: Echo Procedure Status: Routine study Image Quality: Fair Facility Location: Cardiac Echo 1 (No Signature Object) Patient: CHAYO PARSONS Study Date: 05/08/2018 Page 3 of 3 01:33 PM [id number]
--- NOTE | 2018-05-08 16:15 | HOSPPROG ---
Hospitalist Progress Note Assessment/Plan: * Acute on chronic systolic CHF - EF 30% -IV lasix - still volume overload -wall motion abnormality on ECHO - unclear if ever had ischemic eval -hypotension today - reduce lisinopril dose * Chronic respiratory failure - baseline 2-3L -suspect mostly obesity hypoventilation * Morbid obesity BMI 47 * Afib -coreg, Xarelto * Chronic lower extremity wounds due to venous stasis -appreciate wound care -doubt currently infected - s/p recent tx abx * COPD * Bipolar -Haldol changed to Zyprexa - doing better -(severe anxiety alternating with severe somnolence) -consider inpatient psych consult if this remains an issue -denies ever having formal psych eval in past -long history of life trauma - his mother killed his father in murder/ suicide when he was 17 * Microcytic anemia -denies ever having EGD/colonoscopy in past -heme check stool Subjective: Feeling better, fluid coming off nicely. Sometimes has blood in his stool, has never had colonscopy Objective: Vital Signs Temp Pulse Resp BP Pulse Ox 36.6 C 92 20 97/76 L 92 05/08/18 15:34 05/08/18 15:34 05/08/18 15:34 05/08/18 15:34 05/08/18 15:34 Laboratory Results 05/04/18 04:02 05/08/18 03:50 05/07/18 05/08/18 05/09/18 05:59 05:59 05:59 Intake Total 1420 3400 Output Total 1275 3945 960 Balance 145 -545 -960 ECHO reviewed - EF 30%, wall motion abnormality case d/w Dr. Joyce, needs ongoing diuresis - Physical Exam Constitutional: no apparent distress, appears nourished, not in pain Cardiovascular: regular rate and rhythym, no murmur, rub, or gallop, edema (4+ carried mostly in back of thighs and lower abdominal wall) Respiratory: no respiratory distress, no rales or rhonchi, clear to auscultation Gastrointestinal: normoactive bowel sounds, soft, non-tender abdomen, no palpable masses Skin: no rashes or abrasions, no fluctuance, no induration Neurologic: AAOx3, sensation intact bilaterally Psychiatric: interacting appropriately, not anxious, not encephalopathic, thought process linear ICD10 Worksheet Patient Problems: Problems Problem Status Onset Congestive heart failure (CHF) Acute
[2018-05-08] MEDS: oxyCODONE IR 5 MG TAB PO PRN (20:45)
[2018-05-08] MEDS: MELATONIN 3 MG TAB PO SCH (20:46)
[2018-05-08] MEDS: GABAPENTIN 300 MG CAP PO SCH (20:46)
[2018-05-09 04:25] LABS: PLATELET COUNT 196 10^3/uL (150-400)
[2018-05-09] MEDS ORDERED: LISINOPRIL 20 MG TAB PO SCH (09:00)
[2018-05-09] MEDS: FUROSEMIDE 40 MG/4 ML VIAL IVP SCH ×2 (11:15→17:03)
[2018-05-09] MEDS: PREGABALIN 25 MG CAP PO SCH ×2 (11:16→19:59)
[2018-05-09] MEDS: PANTOPRAZOLE SODIUM 40 MG TAB PO SCH (11:16)
[2018-05-09] MEDS: CARVEDILOL 25 MG TAB PO SCH ×2 (11:16→19:27)
[2018-05-09] MEDS: SPIRONOLACTONE 25 MG TAB PO SCH (11:17)
[2018-05-09] MEDS: RIVAROXABAN 20 MG TAB PO SCH (11:18)
[2018-05-09] MEDS: SENNOSIDES 1 TAB PO SCH ×2 (11:18→20:00)
[2018-05-09] MEDS: LISINOPRIL 5 MG TAB PO SCH ×2 (11:18→13:43)
[2018-05-09] MEDS: OLANZapine 5 MG TAB PO SCH ×2 (11:18→19:59)
--- NOTE | 2018-05-09 11:19 | PDCARPN ---
Cardiology Progress Note Chief Complaint: SCHF Assessment/Plan: Assessment: 57M with MMP, new to [facility] system[facility] reviewed. Pt new to me. He has PMH of morbid obesity BMI 45, SCHF found to be dilated NICM based on review of [facility] records from admission 01/25- 02/04/18, chronic LE wounds, COPD , CHRF, AF, IDA, medical noncompliance, recent cellulitis, and BPD presents with complaints of weight gain, increased edema, and shortness of breath. He was discharged from [facility] on 04/26 to [facility] after treatment for sepsis due to LLE cellulitis and metabolic encephalopathy. It is also seems he has had very poor control of volume status lately as well. He tells me his lower extremity and abdominal swelling have worsened significantly since discharge. In addition he feels very short of breath. He denies fevers but does note cough and thinks he may have URI. Echo from this admission shows apical, septal, apical cap, and apical lateral HK , EF 30-35%, BBB. LHC from 01/31/18 demonstrated clean cors. RHC from 01/28/18 showed severe pulmonary htn. EF has been known to be down since at least 09/08. Plan: #. SCHF: presents with severe volume overload L basilar consolidation on CXR which could be pleural effusion NTpBNP 3930 and Trop neg diuresing well on 40 mg IV lasix BID down from admit weight of 159 kg to 145 kg currently appropriately medically managed with Lisinopril, Carvedilol, and Spironolactone #. persistent AF: upon review of [facility], it states he has had AF over multiple hospitalizations rate appears controlled we could consider rhythm control strategy to see if that helps improve his SCHF will review with EP services #. pulmonary htn: continue supplemental O2 and outpatient inhalers will need improved treatment of his IDA #. IDA: will need appropriate treatment to manage his current state of health #. LE wounds: per wound care and hospital medicine #. obesity: BMI 45 weight loss with possible bariatric surgery may be helpful in his care #. CHRF: continue supplemental O2 currently at his baseline O2 needs #. SOB: from hypoxic respiratory failure and CHF continue diuresis Subjective: Feels STEELE, edematous, palps, pnd. No cp or presyncope/syncope. Objective: Vital Signs (8 Hrs) Temp Pulse Resp BP Pulse Ox 05/09/18 07:30 99.0 F 93 22 H 97/78 L 96 05/09/18 03:02 98.3 F 87 18 97/61 L 90 L Intake/Output (24 Hrs) 05/08/18 05/09/18 05/10/18 05:59 05:59 05:59 Intake Total 3400 1240 Output Total 3945 3260 Balance - Intake: Oral (ml) 3400 1240 Output: Urine (ml) 3945 3260 Toilet 1100 Urinal 3945 2160 Other: Weight 145 kg 145.15 kg Number of Voids Urinal 1 3 Number of Stools Toilet 1 Result Diagrams: 05/09/18 03:40 05/09/18 03:40 EKG: reviewed AF Telemetry: AF CVR with RBBB and LAFB - Physical Exam Constitutional: no apparent distress Eyes: anicteric sclera Ears, Nose, Mouth, Throat: moist mucous membranes Cardiovascular: irregularly irregular Respiratory: reduced air movement, inspiratory crackles Gastrointestinal: normoactive bowel sounds, no tenderness Skin: erythema, other (wrapped in DEJA wraps) Neurologic: AAOx3 Psychiatric: cooperative, interactive ICD10 Worksheet Patient Problems: Problems Problem Status Onset Congestive heart failure (CHF) Acute
--- NOTE | 2018-05-09 12:42 | HOSPPROG ---
Hospitalist Progress Note Assessment/Plan: DIAGNOSES: * Acute on chronic systolic CHF and right-sided CHF - EF 30% -still quite volume overloaded and far from euvolemic -wall motion abnormality on ECHO - unclear if ever had ischemic eval -continue IV Lasix, plan likely resume higher lisinopril Dews tomorrow if blood pressure is okay -also needs iron replacement therapy, see below * acute on chronic hypoxemic respiratory failure - short of breath and using 3- 4 L oxygen here compared to usual 2-3 baseline 2-3L -multifactorial with heart failure, pulmonary hypertension, obesity hypoventilation and sleep apnea and COPD * Morbid obesity BMI 47 * Afib, chronic, unclear if paroxysmal or permanent -coreg, Xarelto * Chronic lower extremity wounds due to venous stasis -very large wounds -continue wound care, follow closely for signs of infection * COPD * Bipolar / severe anxiety disorder -Haldol changed to Zyprexa - doing better -(severe anxiety alternating with severe somnolence) -consider inpatient psych consult if this remains an issue -long history of life trauma - his mother killed his father in murder/ suicide when he was 17 * Microcytic iron deficiency anemia confirmed by iron studies -will begin intravenous iron therapy at this time, switched oral after 3 doses -denies ever having EGD/colonoscopy in past -will need GI evaluation once stabilized, will need to determine whether to try and do that here or in the outpatient setting, his ability to follow up is difficult to ascertain Seen by me today on hospitals rounds as well as multidisciplinary rounds I reviewed with Mara Mccarty today SUBJECTIVE: The patient having difficulty describing symptoms to me today but does admit that he has some discomfort at his leg wounds Does not seem to be short of breath lying in bed on oxygen OBJECTIVE Vitals reviewed: Blood pressure is still a bit low but better than yesterday, heart rate controlled in the 90s, respiratory rate still in the 20s at times, no fever [employer], my review: Rate controlled AFib Exam: alert intermittently fairly disoriented as he was during my examination; he was trying to talk to someone on the phone but was holding the TV remote control in his hand, not a telephone. Was unable to tell me where he was including unable to tell me that he was in hospital. Not currently anxious, is relaxed skin warm dry color ok; the leg wounds on his left are still quite weepy less so on his right resps not labored lungs clear BSs heart regular abd soft nondistended nontender, bowel sounds present limbs warm, severe edema of both legs from knees down to feet iv site ok Lab data: Hemoglobin slightly further decreased at 9.6 today and further decrease in the MCV as well Electrolytes and renal function stable, liver enzymes and bilirubin normal Hypoalbuminemic at 3.0 I reviewed the chest x-ray image from his admission for study, he has an enormous heart, there is motion artifact and very difficult to determine whether there is really any other particular abnormality but there may be some increased lung density at the lung bases consistent with either effusion or other cause. Objective: Vital Signs Temp Pulse Resp BP Pulse Ox 36.6 C 86 14 97/61 L 97 05/09/18 12:00 05/09/18 12:00 05/09/18 12:00 05/09/18 12:00 05/09/18 12:00 Laboratory Results 05/09/18 03:40 05/09/18 03:40 05/08/18 05/09/18 05/10/18 06:59 06:59 06:59 Intake Total 3400 1240 425 Output Total 3945 3260 575 Balance -545 -2020 -150 - Time Spent With Patient Time Spent with Patient: greater than 35 minutes Time Spent with Patient: Greater than 35 minutes spent on this patients care, greater than 50% of time spent counseling, educating, and coordinating care regarding the above mentioned plan. ICD10 Worksheet Patient Problems: Problems Problem Status Onset Congestive heart failure (CHF) Acute
[2018-05-09] MEDS: SODIUM FERRIC GLUCONAT/SUCROSE 125 MG in NS 100 ML IV SCH (13:44)
--- NOTE | 2018-05-09 14:35 | WOCRNPDOC ---
KEVIN Advanced Assessment Note - Skin Integrity Problem, Advanced Assess Left Lower Leg Venous Stasis Ulcer Dressing Type: Adaptic Touch, Mepilex Dressing Description: Intact Exudate Amount: Scant Exudate Characteristic(s): Serosanguinous Integumentary Issue Intervention: Dressing Changed, Dressing Initialed & Dated, Mechanical Debridement Cleo Wound Tissue: Erythema, Hemosiderin Staining, Shiny, Xerotic, Hair Loss, Scarred Wound Bed Constitution: Granulation Tissue (100%) Wound Edges: Epithelizing, Attached, Irregular Site Measurement - Head-to-Toe Length X Width X Depth (cm): 12.5x14.5x0.3 Extremity Temperature: Warm Peripheral Edema Location & Description: 3+ LLE and foot Skin Integrity Problem Comment: Healing venous stasis ulcers that are significantly improved since 's assessment. Much of the slough is gone and there are large areas of epithelization. The wound is no longer circumferential and is instead mainly on the anterior lower leg. Honey is no longer indicated and orders will be updated. Wound was mechanically debrided to patient tolerance to reveal a clean granulating wound bed. Cleaned with ns and gauze. Skin prep applied cleo wound, silvasorb to wound bed and then covered with mepilex XT non border foam. Secured with Kerlix. Vijay and Thais RN's in room for care. Wound care will follow. Right Lower Leg Venous Stasis Ulcer Dressing Type: Adaptic Touch, Leonides, Mepilex Dressing Description: Clean/Dry, Intact Exudate Amount: Minimal Exudate Characteristic(s): Sanguinous Integumentary Issue Intervention: Dressing Changed, Dressing Initialed & Dated Cleo Wound Tissue: Erythema, Hemosiderin Staining, Venous Dermatitis, Shiny, Xerotic, Scarred Wound Bed Color: Red Wound Bed Constitution: Granulation Tissue (100%) Wound Edges: Epithelizing, Attached, Irregular Site Measurement - Head-to-Toe Length X Width X Depth (cm): 3.5x3x0.2 Skin Integrity Problem Comment: Wound almost 1/2 the size of last week. Healing well. Per report from RN patient is having trouble with the medium compression with the size F spandigrip. Size G provided instead and orders will be updated. Cleaned with ns and gauze. Wound bed mechanically debrided to 100% clean tissue. Silvasorb applied to wound bed and covered with non border foam. Secured with kerlix.
[2018-05-09] MEDS: MELATONIN 3 MG TAB PO SCH (19:59)
[2018-05-09] MEDS: GABAPENTIN 300 MG CAP PO SCH (20:00)
[2018-05-09] MEDS ORDERED: LORazepam 2 MG/ML INJ IVP PRN (20:34)
--- NOTE | 2018-05-10 08:46 | HOSPPROG ---
Hospitalist Progress Note Assessment/Plan: DIAGNOSES: * Acute on chronic systolic CHF and right-sided CHF - EF 30% -still far from euvolemic, much leg edema -wall motion abnormality on ECHO - unclear if ever had ischemic eval -continue IV Lasix, will increase lisinopril today -also needs iron replacement therapy, see below * acute on chronic hypoxemic respiratory failure - short of breath and using 3- 4 L oxygen here compared to usual 2-3 baseline 2-3L -multifactorial with heart failure, pulmonary hypertension, obesity hypoventilation and sleep apnea and COPD * fever, new onset last evening: ? cause (wounds do not look infected, iv sites ok, no acute resp sxs) -follow closely; cultures and CXR if recurrs * Chronic lower extremity wounds due to venous stasis -very large wounds, slowly healing -continue wound care, follow closely for signs of infection; continue diuresis to reduce lege edema * COPD * Bipolar / severe anxiety disorder -Haldol changed to Zyprexa - doing better -(severe anxiety alternating with severe somnolence) -consider inpatient psych consult if this remains an issue -long history of life trauma - his mother killed his father in murder/ suicide when he was 17 * Microcytic iron deficiency anemia confirmed by iron studies -will begin intravenous iron therapy at this time, switched oral after 3 doses -denies ever having EGD/colonoscopy in past -will need GI evaluation once stabilized, will need to determine whether to try and do that here or in the outpatient setting, his ability to follow up is difficult to ascertain * Morbid obesity BMI 47 * Afib, chronic, unclear if paroxysmal or permanent -Pradeep rubi Seen by me today on hospitalist rounds as well as multidisciplinary rounds I reviewed with Mara Mccarty today SUBJECTIVE: The patient having difficulty describing symptoms to me today but does admit that he has some discomfort at his leg wounds Does not seem to be short of breath lying in bed on oxygen OBJECTIVE Vitals reviewed: T max 37.9 last estefanía, some tachycardia, BPs ok, some Scientific Advisor, my review: Rate controlled AFib Exam: alert better oriented skin warm dry color ok; resps not labored on O2 at rest lungs clear BSs heart regular abd soft nondistended nontender, bowel sounds present limbs warm, severe edema of both legs from knees down to feet iv sites ok, one in each arm Objective: Vital Signs Temp Pulse Resp BP Pulse Ox 37.1 C 102 H 20 112/86 H 90 L 05/10/18 07:28 05/10/18 07:28 05/10/18 07:28 05/10/18 07:28 05/10/18 07:28 Laboratory Results 05/09/18 03:40 05/09/18 03:40 05/09/18 05/10/18 05/11/18 06:59 06:59 06:59 Intake Total 1240 9085 Output Total 8582 8516 Balance -2020 -1490 ICD10 Worksheet Patient Problems: Problems Problem Status Onset Congestive heart failure (CHF) Acute
[2018-05-10] MEDS: FUROSEMIDE 40 MG/4 ML VIAL IVP SCH ×2 (09:28→15:32)
[2018-05-10] MEDS: PANTOPRAZOLE SODIUM 40 MG TAB PO SCH (09:38)
[2018-05-10] MEDS: OLANZapine 5 MG TAB PO SCH ×2 (09:38→20:31)
[2018-05-10] MEDS: PREGABALIN 25 MG CAP PO SCH ×2 (09:38→20:31)
[2018-05-10] MEDS: RIVAROXABAN 20 MG TAB PO SCH (09:39)
[2018-05-10] MEDS: SENNOSIDES 1 TAB PO SCH ×2 (09:39→20:31)
[2018-05-10] MEDS: SPIRONOLACTONE 25 MG TAB PO SCH (09:42)
[2018-05-10] MEDS: SODIUM FERRIC GLUCONAT/SUCROSE 125 MG in NS 100 ML IV SCH (09:57)
[2018-05-10] MEDS: CARVEDILOL 25 MG TAB PO SCH ×2 (11:00→18:31)
[2018-05-10] MEDS: LISINOPRIL 5 MG TAB PO SCH (11:01)
--- NOTE | 2018-05-10 11:05 | PDCARPN ---
Cardiology Progress Note Chief Complaint: biventricular failure Assessment/Plan: Assessment: 57M with PMH of morbid obesity BMI 45, SCHF found to be dilated NICM based on review of [facility] records from admission 01/25- 02/04/18, chronic LE wounds, COPD , CHRF, AF, IDA, medical noncompliance, recent cellulitis, and BPD presents with complaints of weight gain, increased edema, and shortness of breath. He was discharged from [facility] on 04/26 to [facility] after treatment for sepsis due to LLE cellulitis and metabolic encephalopathy. It is also seems he has had very poor control of volume status lately as well. Echo from this admission shows apical, septal, apical cap, and apical lateral HK , EF 30-35%, BBB. LHC from 01/31/18 from [facility] demonstrated clean cors. RHC from 01/28/18 showed severe pulmonary htn. EF has been known to be down since at least 09/08. Plan: #. SCHF/NICM: presents with severe volume overload L basilar consolidation on CXR which could be pleural effusion NTpBNP 3930 and Trop neg diuresing well on 40 mg IV lasix BID down from admit weight of 159 kg to 143 kg currently appropriately medically managed with Lisinopril, Carvedilol, and Spironolactone #. persistent AF: upon review of [facility], it states he has had AF over multiple hospitalizations [id number] of 2 (CHF and htn) rate mildly up today/ will give dosing parameters for Coreg we could consider rhythm control strategy to see if that helps improve his SCHF will review with EP services #. pulmonary htn: continue supplemental O2 and outpatient inhalers will need improved treatment of his IDA #. IDA: will need appropriate treatment to manage his current state of health #. LE wounds: per wound care and hospital medicine #. obesity: BMI 45 weight loss with possible bariatric surgery may be helpful in his care #. CHRF: continue supplemental O2 currently at his baseline O2 needs #. SOB: from hypoxic respiratory failure and CHF continue diuresis 05/10/18 10:59 Subjective: Febrile overnight. No cp, dyspnea, pnd/orthopnea. Reviewed/Discussed With: hospitalist (Dr. Scales) Objective: Vital Signs (8 Hrs) Temp Pulse Resp BP Pulse Ox 05/10/18 10:51 98.8 F 115 H 20 116/79 90 L 05/10/18 07:28 98.7 F 102 H 20 112/86 H 90 L 05/10/18 04:00 99.1 F 110 H 20 98/81 H 90 L Intake/Output (24 Hrs) 05/09/18 05/10/18 05/11/18 05:59 05:59 05:59 Intake Total 1240 2585 Output Total 3260 4075 2100 Balance -2019 Intake: Oral (ml) 1240 2475 IV Infused (ml) 110 Sodium Ferric Gluconat/ 110 Sucrose 125 mg In Ns 100 ml @ 110 mls/hr IV DAILY [facility] Rx#:[id number] Output: Urine (ml) 3260 4075 2100 Toilet 1100 400 700 Urinal 2160 3675 1400 Other: Weight 145.15 kg 143.2 kg Number of Voids Toilet 1 1 Urinal 3 1 Number of Stools Toilet 1 Result Diagrams: 05/09/18 03:40 05/09/18 03:40 Telemetry: reviewed AF RVR - Physical Exam Constitutional: no apparent distress Eyes: anicteric sclera Ears, Nose, Mouth, Throat: moist mucous membranes Cardiovascular: irregularly irregular Respiratory: clear to auscultate bilat (ant brink) Psychiatric: cooperative, interactive ICD10 Worksheet Patient Problems: Problems Problem Status Onset Congestive heart failure (CHF) Acute
[2018-05-10] MEDS: TIOTROPIUM INHALER 18 MCG/DOSE 5 DOSE/MDI IH SCH ×2 (12:17→15:46)
--- NOTE | 2018-05-10 14:42 | ASMTCMCOM ---
CM Note CM Note Notes: Pts case discussed in tx rounds. Pt is not medically stable to d/c at this time. Elsie Sheldon met w/ pt yesterday. Therapies continue to recommend SNF. Updates sent to [facility] and pt will likely return. Plan: Guicho Mercedes Date Signed: 05/10/2018 02:41 PM Electronically Signed By:AMADO Issa
[2018-05-10] MEDS: CALCIUM CARBONATE 500 MG CHEWABLE TAB PO PRN (15:46)
[2018-05-10] MEDS: MELATONIN 3 MG TAB PO SCH (20:31)
[2018-05-10] MEDS: GABAPENTIN 300 MG CAP PO SCH (20:31)
[2018-05-11] MEDS: oxyCODONE IR 5 MG TAB PO PRN (00:02)
[2018-05-11] MEDS: diphenhydrAMINE 25 MG CAP PO PRN ×2 (00:02→20:27)
[2018-05-11] MEDS: TIOTROPIUM INHALER 18 MCG/DOSE 5 DOSE/MDI IH SCH (09:31)
[2018-05-11] MEDS: CARVEDILOL 25 MG TAB PO SCH ×2 (09:43→17:32)
[2018-05-11] MEDS: RIVAROXABAN 20 MG TAB PO SCH (09:45)
[2018-05-11] MEDS: SENNOSIDES 1 TAB PO SCH ×2 (09:45→20:46)
[2018-05-11] MEDS: PANTOPRAZOLE SODIUM 40 MG TAB PO SCH (09:45)
[2018-05-11] MEDS: PREGABALIN 25 MG CAP PO SCH ×2 (09:45→20:46)
[2018-05-11] MEDS: FUROSEMIDE 40 MG/4 ML VIAL IVP SCH ×2 (09:45→17:28)
[2018-05-11] MEDS: SPIRONOLACTONE 25 MG TAB PO SCH (09:45)
[2018-05-11] MEDS: OLANZapine 5 MG TAB PO SCH ×2 (09:45→20:46)
[2018-05-11] MEDS: LISINOPRIL 5 MG TAB PO SCH (09:46)
[2018-05-11] MEDS: SODIUM FERRIC GLUCONAT/SUCROSE 125 MG in NS 100 ML IV SCH (09:49)
[2018-05-11] MEDS: CALCIUM CARBONATE 500 MG CHEWABLE TAB PO PRN ×2 (10:28→19:02)
--- NOTE | 2018-05-11 18:08 | HOSPPROG ---
Hospitalist Progress Note Assessment/Plan: DIAGNOSES: * Acute on chronic systolic CHF and right-sided CHF - EF 30% -still far from euvolemic, much leg edema -wall motion abnormality on ECHO - has had angiograms done elsewhere with no signs of ischemia or significant coronary disease -continue IV Lasix, will increase lisinopril today -also needs iron replacement therapy, see below * acute on chronic hypoxemic respiratory failure - short of breath and using 3- 4 L oxygen here compared to usual 2-3 baseline 2-3L -multifactorial with heart failure, pulmonary hypertension, obesity hypoventilation and sleep apnea and COPD * fever, on 05/07, has not recurred since then -no specific signs of infection, following expectantly * Chronic lower extremity wounds due to venous stasis -very large wounds, slowly healing -continue wound care, follow closely for signs of infection; continue diuresis to reduce lege edema * COPD * Bipolar / severe anxiety disorder -Haldol changed to Zyprexa - doing better, much more alert today -(severe anxiety alternating with severe somnolence) -long history of life trauma - his mother killed his father in murder/ suicide when he was 17 * Microcytic iron deficiency anemia confirmed by iron studies -has had 3 doses of IV iron today will switch to oral tomorrow -denies ever having EGD/colonoscopy in past -will need GI evaluation once stabilized, will need to determine whether to try and do that here or in the outpatient setting, his ability to follow up is difficult to ascertain * Morbid obesity BMI 47 * Afib, chronic, unclear if paroxysmal or permanent -Pradeep rubi Seen by me today on hospitalist rounds as well as multidisciplinary rounds I also subsequently visited the patient today with Dr. Sam Whittaker who has been requested see the patient for consideration of Bi V pacing and possible AFib ablation or AV node ablation and pacing At this point he continues to diurese well and will continue his Lasix. There is still quite a bit of edema in his legs need ongoing wound care. In terms of any procedures the patient has large open wounds on both legs, and with his ongoing edema high risk for recurrence of these and has been recent infection. It would be unsafe to consider any placement of a device until he has clearly got stable management keeping his edema down, complete healing of his leg wounds , and no signs of infection. The patient has had care at 6 different hospitals and with at least 6 different cardiology groups as best we can tell over the past few years. This is despite living in the same home during all of that time. We did discuss with the patient in detail that until he can prove that he is going to be sticking with a single set of physicians and a single hospital system, and managing his weight, his edema, and his skin care and other issues well enough to avoid any potential infection, he will not be a candidate and will not consider placement of a device. However there is potential for him to benefit from a device if we can keep him in sinus rhythm or at least rate controlled and give him some boost from by V pacing. Would like to get a device in place for him if we are able. He will follow up with Dr. Whittaker in 3 months in clinic. Currently will continue all of his ongoing treatments as above. 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: Rate controlled AFib Exam: alert , relaxed, talkative skin warm dry color ok; resps not labored on O2 at rest lungs clear BSs heart regular abd soft nondistended nontender, bowel sounds present limbs warm, some decrease in edema of both legs but still quite marked iv sites ok, one in each arm Lab data: Metabolic panel was stable electrolytes and renal function Objective: Vital Signs Temp Pulse Resp BP Pulse Ox 36.8 C 85 18 94/50 L 93 05/11/18 16:19 05/11/18 17:32 05/11/18 16:19 05/11/18 17:32 05/11/18 16:19 Laboratory Results 05/09/18 03:40 05/11/18 03:42 05/10/18 05/11/18 05/12/18 06:59 06:59 06:59 Intake Total 9718 7984 2174 Output Total 9324 9080 7954 Balance -4909 -4365 -095 - Time Spent With Patient Time Spent with Patient: greater than 35 minutes Time Spent with Patient: Greater than 35 minutes spent on this patients care, greater than 50% of time spent counseling, educating, and coordinating care regarding the above mentioned plan. ICD10 Worksheet Patient Problems: Problems Problem Status Onset Congestive heart failure (CHF) Acute
--- NOTE | 2018-05-11 19:11 | GCON ---
[f rep st] CONSULTATION ELECTROPHYSIOLOGY CONSULTATION REFERRING PHYSICIAN: NELL Dias REASON FOR CONSULTATION: Atrial fibrillation with rapid ventricular rates, nonischemic cardiomyopathy, and systolic congestive heart failure. HISTORY OF PRESENT ILLNESS: The patient is a 57-year-old male with a past medical history including systolic congestive heart failure, dilated nonischemic cardiomyopathy, morbid obesity, chronic lower extremity wounds with recent cellulitis, COPD, persistent atrial fibrillation, obstructive sleep apnea , pulmonary hypertension, and marked activity intolerance. The patient was admitted for further evaluation and management of progressive dyspnea on exertion, and he presents with severe fluid volume overload. He has been diuresing well this hospitalization, but continues to experience notable dyspnea on exertion, which significantly limits his physical activity. Patient is unable to report how long he has been in persistent atrial fibrillation, although he describes symptoms consistent with congestive heart failure over the past several years. Review of records from recent hospitalizations at other [facility] note longstanding persistent atrial fibrillation. His symptoms have progressed most notably over the past 12 months and include dyspnea on exertion, orthopnea, weight gain, and bilateral lower extremity edema. The patient has been seen at several [facility] over the past number of years, and has not had routine cardiology or wound care followup. He has recently been treated for BLE cellulitis, and he currently has several open ulcers to his legs. His [id number] score is 2 for congestive heart failure and hypertension, he is anticoagulated with Xarelto. Left and right heart catheterization January, demonstrated normal coronary arteries and severe pulmonary hypertension. LVEF by echo this hospitalization is roughly 30%. PAST MEDICAL HISTORY: 1. Systolic congestive heart failure and dilated nonischemic cardiomyopathy 2. Persistent atrial fibrillation. 3. Obstructive sleep apnea, untreated. 4. Chronic bilateral lower extremity wounds with recent cellulitis. 5. COPD. 6. Medical noncompliance. 7. Morbid obesity. MEDICATIONS: Outpatient medications include albuterol, Lasix,, Coreg, Neurontin ,., Haldol,, lisinopril,melatonin, omeprazole, oxycodone, Lyrica, Xarelto 20 mg daily, senna laxative, and Spiriva inhaler. FAMILY HISTORY: Noncontributory. SOCIAL HISTORY: Patient is with a 2-1/2-year-old daughter. He is a nonsmoker and denies any alcohol or recreational drug use. 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 REVIEW OF SYSTEMS: As per HPI. A complete 10-point review of systems was obtained and is negative except for what is dictated above. PHYSICAL EXAMINATION: GENERAL: Alert and oriented x4. No apparent distress. VITAL SIGNS: Blood pressure 92/48, heart rate 99, respiratory rate 18, SpO2 93 % on 2.5 L nasal cannula. Temp 36.8 degrees Celsius. RESPIRATORY: Lungs are clear to auscultation, although somewhat diminished in the bases. HEENT: Normocephalic, atraumatic. Eyes without scleral icterus. Mucous membranes are moist. Hearing is within normal limits. NECK: Supple with no jugular venous distention. HEART: Irregularly irregular rhythm, regular rate. ABDOMEN: Soft to palpation, normoactive bowel sounds times all 4 quadrants. GENITOURINARY: No Jaffe present. SKIN: Warm and dry with pitting bilateral lower extremity edema and ulcers covered with a clean and dry dressing. PSYCH: Normal mood and affect this afternoon. NEURO: No focal deficits noted. LABORATORY STUDIES: Drawn today demonstrate normal BMP. PROCEDURES PERFORMED DURING HOSPITALIZATION: Echocardiogram 05/07/2018 demonstrates LVEF 30% to 35% with paradoxic septal wall motion, mild MR, mild TR , and RVSP measuring 32 mmHg. IMPRESSION AND PLAN: A 57-year-old male with systolic congestive heart failure , NICM, persistent atrial fibrillation, morbid obesity, sleep apnea, and lower extremity wounds with recent cellulitis. We had a complex discussion regarding the patient's persistent atrial fibrillation, systolic congestive heart failure, and medical noncompliance. He reports that he is motivated to engage in [employer] followup and close adherence to recommendations for of his chronic cormorbid conditions. He will be medically optimized during his hospitalization and he agrees to follow closely with our heart failure clinic with Dr. Martini. He will also follow-up with outpatient wound care and he will be seen in our outpatient electrophysiology clinic in 3 months once his BLE wounds are healed. If he demonstrates medical compliance and his bilateral lower extremity wounds are healed, we will consider implantation of a biventricular ICD with AV node ablation for management of his exertional symptoms. If we do not proceed with AV node ablation, we may consider implantation of an ICD without biventricular pacing. He understands that implantation of an ICD +/- AV node ablation is contraindicated if he does not seek routine follow-up for his CHF, NICM, or BLE edema/ulcerations. EP will sign off for now and we will see patient in outpatient followup. Time spent on consultation greater than 40 minutes. /[id number]/MODL MTDD
[2018-05-11] MEDS: GABAPENTIN 300 MG CAP PO SCH (20:46)
[2018-05-11] MEDS: MELATONIN 3 MG TAB PO SCH (20:46)
[2018-05-12] MEDS: oxyCODONE IR 5 MG TAB PO PRN ×2 (02:34→11:52)
[2018-05-12] MEDS: CARVEDILOL 25 MG TAB PO SCH ×2 (08:01→17:48)
[2018-05-12] MEDS: OLANZapine 5 MG TAB PO SCH ×2 (09:38→19:49)
[2018-05-12] MEDS: PREGABALIN 25 MG CAP PO SCH ×2 (09:38→19:49)
[2018-05-12] MEDS: PANTOPRAZOLE SODIUM 40 MG TAB PO SCH (09:39)
[2018-05-12] MEDS: LISINOPRIL 5 MG TAB PO SCH (09:40)
[2018-05-12] MEDS: SPIRONOLACTONE 25 MG TAB PO SCH (09:41)
[2018-05-12] MEDS: FERROUS SULFATE 325 MG TAB PO SCH (09:42)
[2018-05-12] MEDS: SENNOSIDES 1 TAB PO SCH ×2 (09:42→19:49)
[2018-05-12] MEDS: FUROSEMIDE 40 MG/4 ML VIAL IVP SCH ×2 (09:42→15:58)
--- NOTE | 2018-05-12 09:53 | PDCARPN ---
Cardiology Progress Note Chief Complaint: SCHF volume overload Assessment/Plan: Assessment: 57M with PMH of morbid obesity BMI 45, SCHF found to be dilated NICM based on review of [facility] records from admission 01/25- 02/04/18, chronic LE wounds, COPD , CHRF, AF, IDA, medical noncompliance, recent cellulitis, and BPD presents with complaints of weight gain, increased edema, and shortness of breath. He was discharged from [facility] on 04/26 to [facility] after treatment for sepsis due to LLE cellulitis and metabolic encephalopathy. It is also seems he has had very poor control of volume status lately as well. Echo from this admission shows apical, septal, apical cap, and apical lateral HK , EF 30-35%, mild MR/TR. 12-lead ECG from 05/03/18 shows AF with RBBB/LAFB. LHC from 01/31/18 from [facility] demonstrated clean cors. RHC from 01/28/18 showed severe pulmonary htn. EF has been known to be down since at least 09/08. Plan: #. SCHF/NICM: presents with severe volume overload L basilar consolidation on CXR which could be pleural effusion NTpBNP 3930 and Trop neg diuresing well on 40 mg IV lasix BID down from admit weight of 159 kg to 141 kg currently appropriately medically managed with Lisinopril, Carvedilol, and Spironolactone will reduce dose of Carvedilol as he has been hypotensive #. persistent AF: upon review of [facility], it states he has had AF over multiple hospitalizations [id number] of 2 (CHF and htn) on Xarelto appreciate EP input plan will be 3 months of medical follow up/ if he is able to maintain follow ups and show compliance plans will be for advanced EP procedures with bi-V ICD and AVN ablation #. pulmonary htn: continue supplemental O2 and outpatient inhalers will need improved treatment of his IDA #. IDA: will need appropriate treatment to manage his current state of health #. LE wounds: per wound care and hospital medicine #. obesity: BMI 45 weight loss with possible bariatric surgery may be helpful in his care #. CHRF: continue supplemental O2 currently at his baseline O2 needs #. SOB: from hypoxic respiratory failure and CHF continue diuresis #. anemia: IV iron given possible need for colonoscopy inpatient versus outpatient will hold Xarelto/ recheck CBC 05/12/18 09:44 Subjective: No dizziness. Minimally ambulatory. No cp, dyspnea at rest. Reviewed/Discussed With: hospitalist (Dr. Scales) Objective: Vital Signs (8 Hrs) Temp Pulse Resp BP Pulse Ox 05/12/18 09:40 91/64 L 05/12/18 08:01 93 88/58 L 05/12/18 07:53 98 F 93 18 88/58 L 92 05/12/18 03:11 98.1 F 96 14 89/64 L 92 Intake/Output (24 Hrs) 05/11/18 05/12/18 05/13/18 05:59 05:59 05:59 Intake Total 2410 1530 Output Total 6325 3000 Balance -3915 -1470 Intake: Oral (ml) 2410 1430 IV Infused (ml) 100 Sodium Ferric Gluconat/ 100 Sucrose 125 mg In Ns 100 ml @ 110 mls/hr IV DAILY [facility] Rx#:[id number] Output: Urine (ml) 6325 3000 Toilet 2000 1000 Urinal 4325 2000 Other: Weight 141.2 kg Intake Quantity Yes Sufficient Output Comment Toilet pt refused stool sample container. Also flushed before chance to see. Number of Voids Toilet 1 1 Urinal 1 1 Result Diagrams: 05/09/18 03:40 05/11/18 03:42 Telemetry: AF - Physical Exam Constitutional: no apparent distress Eyes: anicteric sclera Cardiovascular: irregularly irregular, No systolic murmur Respiratory: clear to auscultate bilat (ant brink) Gastrointestinal: normoactive bowel sounds Skin: other (LE wounds are wrapped/ 2+ edema) Musculoskeletal: other Psychiatric: cooperative, interactive ICD10 Worksheet Patient Problems: Problems Problem Status Onset Congestive heart failure (CHF) Acute
[2018-05-12] MEDS: RIVAROXABAN 20 MG TAB PO SCH (10:03)
[2018-05-12] MEDS: TIOTROPIUM INHALER 18 MCG/DOSE 5 DOSE/MDI IH SCH (10:13)
--- NOTE | 2018-05-12 11:47 | ASMTCMCOM ---
CM Note CM Note Notes: 05/12/2018 Case Management Note Discussed pt during rounds this morning. David from [facility] visited onsite. Per David 30 day medicaid stay includes hospital days and pt has now completed his 30 day obligation. Pt is welcome to return to [facility] per PT and OT recommendations without the need for new PASRR or new ULTC 100. D/C date remains unclear. Case Management d/c poc: return to [facility] per therapy recommendations. Case Management to follow. Date Signed: 05/12/2018 11:46 AM Electronically Signed By:Antonia Hopson RN
[2018-05-12] MEDS: diphenhydrAMINE 25 MG CAP PO PRN (11:55)
--- NOTE | 2018-05-12 16:31 | HOSPPROG ---
Hospitalist Progress Note Assessment/Plan: DIAGNOSES: * Acute on chronic systolic CHF and right-sided CHF - EF 30% -still far from euvolemic, with leg edema and probably abdominal edema as well -previous cardiac angios have been negative for coronary disease -continue IV Lasix, lisinopril, beta-kan -also needs iron replacement therapy, see below -in long-term patient could potentially benefit from Bi V pacing and/or AFib ablation but would not be safe to do these until he clearly has control of his edema and leg wounds * acute on chronic hypoxemic respiratory failure - short of breath and using 3- 4 L oxygen here compared to usual 2-3 baseline 2-3L -multifactorial with heart failure, pulmonary hypertension, obesity hypoventilation and sleep apnea and COPD * fever, on 05/07, has not recurred since then -no specific signs of infection, following expectantly * Microcytic iron deficiency anemia confirmed by iron studies (Hematochezia seen today 05/12 new finding) -has had 3 doses of IV iron now on oral -initially plan was to have him get an outpatient GI endoscopic evaluation, but now with hematochezia and cardiac indications for anticoagulation will ask Cardiology to assess him for safety of doing endoscopy with sedation during this hospital admission -Xarelto placed on hold at this time due to bleeding * Chronic lower extremity wounds due to venous stasis -very large wounds, slowly healing -continue wound care, follow closely for signs of infection; continue diuresis to reduce leg edema * Afib, chronic, unclear if paroxysmal or permanent -coreg, Xarelto is currently held due to bleeding (gi) * COPD * Bipolar / severe anxiety disorder -Haldol changed to Zyprexa - doing better, much more alert today -(severe anxiety alternating with severe somnolence) -long history of life trauma - his mother killed his father in murder/ suicide when he was 17 * Morbid obesity BMI 47 -Dr. Whittaker and I have had lengthy conversations with him about the importance of trying to get his weight down, and some of the things he might be able to do to accomplish this, should follow up in clinic for help with this Seen by me today on hospitalist rounds as well as multidisciplinary rounds SUBJECTIVE: Feels reasonably well today No shortness of Eating well Does complain of some new onset of pain across the mid forefoot on the left that feels like a bone issue to him, no notable injury that he recalls had some bright red blood per rectum today without pain; this is concerning given his anticoagulation for AFib and his iron deficiency anemia of unknown etiology OBJECTIVE Vitals reviewed: Blood pressures are lower today, otherwise stable without fever 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, my review: Rate controlled AFib I&O: Continues with excellent diuresis each day Exam: alert , relaxed, talkative skin warm dry color ok; resps not labored on O2 at rest lungs clear BSs heart regular abd soft nondistended nontender, bowel sounds present limbs warm, some decrease in edema of both legs but still quite marked; I did examine his left foot and did not see any probable that would explain his new left foot pain; wounds continued to heal nicely but are still open iv sites ok, one in each arm Lab data: Hemoglobin slightly higher today at 10.1 Objective: Vital Signs Temp Pulse Resp BP Pulse Ox 36.8 C 95 18 86/49 L 93 05/12/18 15:24 05/12/18 15:24 05/12/18 15:24 05/12/18 15:24 05/12/18 15:24 Laboratory Results 05/12/18 11:30 05/11/18 03:42 05/11/18 05/12/18 05/13/18 06:59 06:59 06:59 Intake Total 5996 1530 Output Total 1312 5301 Balance -1275 -8487 - Time Spent With Patient Time Spent with Patient: greater than 35 minutes Time Spent with Patient: Greater than 35 minutes spent on this patients care, greater than 50% of time spent counseling, educating, and coordinating care regarding the above mentioned plan. ICD10 Worksheet Patient Problems: Problems Problem Status Onset Congestive heart failure (CHF) Acute
--- NOTE | 2018-05-12 19:24 | HOSPPROG ---
Hospitalist Progress Note Assessment/Plan: DIAGNOSES: * Acute on chronic systolic CHF and right-sided CHF - EF 30% -still far from euvolemic, with leg edema and probably abdominal edema as well -previous cardiac angios have been negative for coronary disease -continue IV Lasix, lisinopril, beta-kan -also needs iron replacement therapy, see below -in long-term patient could potentially benefit from Bi V pacing and/or AFib ablation but would not be safe to do these until he clearly has control of his edema and leg wounds * acute on chronic hypoxemic respiratory failure - short of breath and using 3- 4 L oxygen here compared to usual 2-3 baseline 2-3L -multifactorial with heart failure, pulmonary hypertension, obesity hypoventilation and sleep apnea and COPD * fever, on 05/07, has not recurred since then -no specific signs of infection, following expectantly * Microcytic iron deficiency anemia confirmed by iron studies (Hematochezia seen today 05/12 new finding) -has had 3 doses of IV iron now on oral -initially plan was to have him get an outpatient GI endoscopic evaluation, but now with hematochezia and cardiac indications for anticoagulation will ask Cardiology to assess him for safety of doing endoscopy with sedation during this hospital admission -Xarelto placed on hold at this time due to bleeding * Chronic lower extremity wounds due to venous stasis -very large wounds, slowly healing -continue wound care, follow closely for signs of infection; continue diuresis to reduce leg edema * new onset right foot pain today, no history of injury * Afib, chronic, unclear if paroxysmal or permanent -coreg, Xarelto is currently held due to bleeding (gi) * COPD * Bipolar / severe anxiety disorder -Haldol changed to Zyprexa - doing better, much more alert today -(severe anxiety alternating with severe somnolence) -long history of life trauma - his mother killed his father in murder/ suicide when he was 17 * Morbid obesity BMI 47 -Dr. Whittaker and I have had lengthy conversations with him about the importance of trying to get his weight down, and some of the things he might be able to do to accomplish this, should follow up in clinic for help with this Seen by me today on hospitalist rounds as well as multidisciplinary rounds SUBJECTIVE: Feels reasonably well today No shortness of Eating well Does complain of some new onset of pain across the mid forefoot on the right that feels like a bone issue to him, no notable injury that he recalls had some bright red blood per rectum today without pain; this is concerning given his anticoagulation for AFib and his iron deficiency anemia of unknown etiology OBJECTIVE Vitals reviewed: Blood pressures are lower today, otherwise stable without fever Ship [employer], my review: Rate controlled AFib I&O: Continues with excellent diuresis each day Exam: alert , relaxed, talkative skin warm dry color ok; resps not labored on O2 at rest lungs clear BSs heart regular abd soft nondistended nontender, bowel sounds present limbs warm, some decrease in edema of both legs but still quite marked; I did examine his right foot and did not see any probable that would explain his new right foot pain; wounds continued to heal nicely but are still open iv sites ok, one in each arm Lab data: Hemoglobin slightly higher today at 10.1 Objective: Vital Signs Temp Pulse Resp BP Pulse Ox 36.8 C 105 H 18 94/58 L 93 05/12/18 15:24 05/12/18 17:48 05/12/18 15:24 05/12/18 17:48 05/12/18 15:24 Laboratory Results 05/12/18 11:30 05/11/18 03:42 05/11/18 05/12/18 05/13/18 06:59 06:59 06:59 Intake Total 2410 1530 740 Output Total 6365 3000 1400 Balance -3915 -1470 -660 - Time Spent With Patient Time Spent with Patient: greater than 35 minutes Time Spent with Patient: Greater than 35 minutes spent on this patients care, greater than 50% of time spent counseling, educating, and coordinating care regarding the above mentioned plan. ICD10 Worksheet Patient Problems: Problems Problem Status Onset Congestive heart failure (CHF) Acute
[2018-05-12] MEDS: MELATONIN 3 MG TAB PO SCH (19:49)
[2018-05-12] MEDS: GABAPENTIN 300 MG CAP PO SCH (19:49)
[2018-05-13 04:30] LABS: PLATELET COUNT 203 10^3/uL (150-400)
[2018-05-13] MEDS: TIOTROPIUM INHALER 18 MCG/DOSE 5 DOSE/MDI IH SCH (08:45)
[2018-05-13] MEDS: PREGABALIN 25 MG CAP PO SCH ×2 (10:46→19:57)
[2018-05-13] MEDS: FERROUS SULFATE 325 MG TAB PO SCH (10:46)
[2018-05-13] MEDS: SENNOSIDES 1 TAB PO SCH ×2 (10:46→19:57)
[2018-05-13] MEDS: LISINOPRIL 5 MG TAB PO SCH (10:46)
[2018-05-13] MEDS: CARVEDILOL 25 MG TAB PO SCH ×2 (10:49→17:59)
[2018-05-13] MEDS: SPIRONOLACTONE 25 MG TAB PO SCH (10:50)
[2018-05-13] MEDS: PANTOPRAZOLE SODIUM 40 MG TAB PO SCH (10:50)
[2018-05-13] MEDS: FUROSEMIDE 40 MG/4 ML VIAL IVP SCH ×2 (10:51→16:46)
[2018-05-13] MEDS: OLANZapine 5 MG TAB PO SCH ×2 (10:51→19:56)
--- NOTE | 2018-05-13 11:40 | PDCARPN ---
Cardiology Progress Note Chief Complaint: SCHF/AF Assessment/Plan: Assessment: 57M with PMH of morbid obesity BMI 45, SCHF found to be dilated NICM based on review of [facility] records from admission 01/25- 02/04/18, chronic LE wounds, COPD , CHRF, AF, IDA, medical noncompliance, recent cellulitis, and BPD presents with complaints of weight gain, increased edema, and shortness of breath. He was discharged from [facility] on 04/26 to [facility] after treatment for sepsis due to LLE cellulitis and metabolic encephalopathy. It is also seems he has had very poor control of volume status lately as well. Echo from this admission shows apical, septal, apical cap, and apical lateral HK , EF 30-35%, mild MR/TR. 12-lead ECG from 05/03/18 shows AF with RBBB/LAFB. LHC from 01/31/18 from [facility] demonstrated clean cors. RHC from 01/28/18 showed severe pulmonary htn. EF has been known to be down since at least 09/08. Plan: #. SCHF/NICM: presents with severe volume overload L basilar consolidation on CXR which could be pleural effusion NTpBNP 3930 and Trop neg diuresing well on 40 mg IV lasix BID down from admit weight of 159 kg to 141 kg currently appropriately medically managed with Lisinopril, Carvedilol, and Spironolactone will reduce dose of Carvedilol as he has been hypotensive #. persistent AF: upon review of [facility], it states he has had AF over multiple hospitalizations [id number] of 2 (CHF and htn) on Xarelto appreciate EP input plan will be 3 months of medical follow up and optimizing medical therapy if he is able to maintain follow ups and show compliance plans will be for advanced EP procedures with bi-V ICD and AVN ablation #. pulmonary htn: continue supplemental O2 and outpatient inhalers will need improved treatment of his IDA #. IDA: will need appropriate treatment to manage his current state of health #. LE wounds: per wound care and hospital medicine #. obesity: BMI 45 weight loss with possible bariatric surgery may be helpful in his care #. CHRF: continue supplemental O2 currently at increased O2 needs #. SOB: from hypoxic respiratory failure and CHF continue diuresis #. anemia: IV iron given possible need for colonoscopy inpatient versus outpatient will hold Xarelto/ recheck CBC #. hematochezia: agree that EGD/colonoscopy are indicated patient with no active angina and CHF improving OK to undergo further workup for this from cardiology perspective 05/13/18 11:38 Subjective: No pain. No dyspnea currently. Reviewed/Discussed With: hospitalist (Dr. Gonzalez) Objective: Vital Signs (8 Hrs) Temp Pulse Resp BP Pulse Ox 05/13/18 10:49 98 94/58 L 05/13/18 10:46 94/58 L 05/13/18 08:52 99 16 95 05/13/18 08:00 98.4 F 93 18 94/60 L 96 05/13/18 04:00 98.7 F 84 16 90/48 L 95 Intake/Output (24 Hrs) 05/12/18 05/13/18 05/14/18 05:59 05:59 05:59 Intake Total 1530 1240 Output Total 3000 2075 500 Balance -1470 -835 -500 Intake: Oral (ml) 1430 1240 IV Infused (ml) 100 Sodium Ferric Gluconat/ 100 Sucrose 125 mg In Ns 100 ml @ 110 mls/hr IV DAILY UZIEL Rx#:[id number] Output: Urine (ml) 3000 2075 500 Toilet 1000 500 Urinal 2000 1575 500 Other: Weight 141.2 kg 142.3 kg Intake Quantity Yes Yes Sufficient Output Comment Toilet pt refused stool sample container. Also flushed before chance to see. Number of Voids Toilet 1 Urinal 1 1 1 Result Diagrams: 05/13/18 03:36 05/13/18 03:36 Telemetry: reviewed AF - Physical Exam Constitutional: no apparent distress Eyes: anicteric sclera Cardiovascular: irregularly irregular Respiratory: clear to auscultate bilat, no crackles Gastrointestinal: normoactive bowel sounds, no tenderness Skin: other (LE in Shine wraps) Neurologic: AAOx3 Psychiatric: cooperative, interactive ICD10 Worksheet Patient Problems: Problems Problem Status Onset Congestive heart failure (CHF) Acute
[2018-05-13] MEDS: diphenhydrAMINE 25 MG CAP PO PRN ×2 (12:32→17:59)
--- NOTE | 2018-05-13 16:11 | HOSPPROG ---
Hospitalist Progress Note Assessment/Plan: 57 year old male with fluid overload 2/2 to CHF here for diuresis. * Acute on chronic systolic CHF and right-sided CHF - EF 30% -still far from euvolemic, with leg edema and probably abdominal edema as well -previous cardiac angios have been negative for coronary disease -continue IV Lasix, lisinopril, beta-kan -also needs iron replacement therapy, see below -in long-term patient could potentially benefit from Bi V pacing and/or AFib ablation but would not be safe to do these until he clearly has control of his edema and leg wounds * acute on chronic hypoxemic respiratory failure - short of breath and using 3- 4 L oxygen here compared to usual 2-3 baseline 2-3L -multifactorial with heart failure, pulmonary hypertension, obesity hypoventilation and sleep apnea and COPD * fever, on 05/07, has not recurred since then -no specific signs of infection, following expectantly * Microcytic iron deficiency anemia confirmed by iron studies- possible hematochezia noted two days ago, but no BM since. You would think if he was having an active bleed he would be having stools given the laxative properties of gi blood. Cardiology has cleared for colonoscopy if it is warranted. H/H has been improving. -has had 3 doses of IV iron now on oral -Xarelto placed on hold at this time due to bleeding * Chronic lower extremity wounds due to venous stasis -very large wounds, slowly healing -continue wound care, follow closely for signs of infection; continue diuresis to reduce leg edema -complaints of left leg pain. plain film ordered. * new onset right foot pain today, no history of injury * Afib, chronic, unclear if paroxysmal or permanent -coreg, Xarelto is currently held due to bleeding (gi) * COPD * Bipolar / severe anxiety disorder -Haldol changed to Zyprexa - doing better, much more alert today -(severe anxiety alternating with severe somnolence) -long history of life trauma - his mother killed his father in murder/ suicide when he was 17 * Morbid obesity BMI 47 -Dr. Whittaker and I have had lengthy conversations with him about the importance of trying to get his weight down, and some of the things he might be able to do to accomplish this, should follow up in clinic for help with this Subjective: No complaints. some mild leg pain. left foot hurts. Objective: Vital Signs Temp Pulse Resp BP Pulse Ox 36.8 C 108 H 18 92/58 L 94 05/13/18 11:50 05/13/18 11:50 05/13/18 11:50 05/13/18 11:50 05/13/18 11:50 Laboratory Results 05/13/18 03:36 05/13/18 03:36 05/12/18 05/13/18 05/14/18 05:59 05:59 05:59 Intake Total 1530 1240 Output Total 3000 0431 5388 Balance -5321 -391 -0006 - Physical Exam Constitutional: no apparent distress, appears nourished, not in pain Eyes: PERRL, anicteric sclera, EOMI Ears, Nose, Mouth, Throat: moist mucous membranes, hearing normal, ears appear normal, no oral mucosal ulcers Cardiovascular: regular rate and rhythym, no murmur, rub, or gallop, edema ( still with edema to thighs, although only trace. ) Respiratory: no respiratory distress, no rales or rhonchi, clear to auscultation Gastrointestinal: normoactive bowel sounds, soft, non-tender abdomen, no palpable masses Genitourinary: no bladder fullness, no bladder tenderness, no renal bruits Skin: no rashes or abrasions, no fluctuance, no induration Musculoskeletal: full muscle strength, no muscle tenderness, normal joint ROM Neurologic: AAOx3, sensation intact bilaterally Psychiatric: interacting appropriately, not anxious, not encephalopathic, thought process linear Lymph, Heme, Immunologic: no cervical LAD, no supraclavicular LAD ICD10 Worksheet Patient Problems: Problems Problem Status Onset Congestive heart failure (CHF) Acute
[2018-05-13] MEDS: CALCIUM CARBONATE 500 MG CHEWABLE TAB PO PRN (19:06)
[2018-05-13] MEDS: MELATONIN 3 MG TAB PO SCH (19:57)
[2018-05-13] MEDS: GABAPENTIN 300 MG CAP PO SCH (19:57)
[2018-05-13] MEDS ORDERED: hydrOXYzine HCL 50 MG TAB PO ONE (20:37)
[2018-05-13] MEDS ORDERED: NICOTINE 14 MG/24 HR PATCH TD SCH ×2 (20:45→21:00)
[2018-05-13] MEDS ORDERED: LORazepam 2 MG/ML INJ IVP ONE (23:27)
[2018-05-14] MEDS: oxyCODONE IR 5 MG TAB PO PRN ×3 (01:39→23:51)
[2018-05-14] MEDS: PREGABALIN 25 MG CAP PO SCH ×2 (08:26→21:05)
[2018-05-14] MEDS: SPIRONOLACTONE 25 MG TAB PO SCH (08:26)
[2018-05-14] MEDS: SENNOSIDES 1 TAB PO SCH ×2 (08:27→21:05)
[2018-05-14] MEDS: LISINOPRIL 5 MG TAB PO SCH (08:27)
[2018-05-14] MEDS: FERROUS SULFATE 325 MG TAB PO SCH (08:27)
[2018-05-14] MEDS: PANTOPRAZOLE SODIUM 40 MG TAB PO SCH (08:27)
[2018-05-14] MEDS: CARVEDILOL 25 MG TAB PO SCH ×2 (08:27→18:21)
[2018-05-14] MEDS: OLANZapine 5 MG TAB PO SCH ×2 (08:27→21:05)
[2018-05-14] MEDS: FUROSEMIDE 40 MG/4 ML VIAL IVP SCH ×2 (08:28→15:14)
[2018-05-14] MEDS: TIOTROPIUM INHALER 18 MCG/DOSE 5 DOSE/MDI IH SCH (08:50)
[2018-05-14 09:13] LABS: PLATELET COUNT 172 10^3/uL (150-400)
--- NOTE | 2018-05-14 09:33 | PDCARPN ---
Cardiology Progress Note Chief Complaint: SCHF/AF/severe volume overload Assessment/Plan: Assessment: 57M with PMH of morbid obesity BMI 45, SCHF found to be dilated NICM based on review of [facility] records from admission 01/25- 02/04/18, chronic LE wounds, COPD , CHRF, AF, IDA, medical noncompliance, recent cellulitis, and BPD presents with complaints of weight gain, increased edema, and shortness of breath. He was discharged from [facility] on 04/26 to [facility] after treatment for sepsis due to LLE cellulitis and metabolic encephalopathy. It is also seems he has had very poor control of volume status lately as well. Echo from this admission shows apical, septal, apical cap, and apical lateral HK , EF 30-35%, mild MR/TR. 12-lead ECG from 05/03/18 shows AF with RBBB/LAFB. LHC from 01/31/18 from [facility] demonstrated clean cors. RHC from 01/28/18 showed severe pulmonary htn. EF has been known to be down since at least 09/08. Plan: #. SCHF/NICM: presents with severe volume overload L basilar consolidation on CXR which could be pleural effusion NTpBNP 3930 and Trop neg diuresing well on 40 mg IV lasix BID down from admit weight of 159 kg to 141 kg currently appropriately medically managed with Lisinopril, Carvedilol, and Spironolactone will reduce dose of Carvedilol as he has been hypotensive #. persistent AF: upon review of [facility], it states he has had AF over multiple hospitalizations [id number] of 2 (CHF and htn) on Xarelto appreciate EP input plan will be 3 months of medical follow up and optimizing medical therapy if he is able to maintain follow ups and show compliance, plans will be for advanced EP procedures with bi-V ICD and AVN ablation #. pulmonary htn: continue supplemental O2 and outpatient inhalers will need improved treatment of his IDA #. IDA: will need appropriate treatment to manage his current state of health #. LE wounds: per wound care and hospital medicine #. obesity: BMI 45 weight loss with possible bariatric surgery may be helpful in his care #. CHRF: continue supplemental O2 currently at increased O2 needs #. SOB: from hypoxic respiratory failure and CHF continue diuresis #. anemia: IV iron given possible need for colonoscopy inpatient versus outpatient will hold Xarelto/ recheck CBC #. hematochezia: agree that EGD/colonoscopy are indicated patient with no active angina and CHF improving OK to undergo further workup for this from cardiology perspective Please have patient follow up with cardiology for CHF. Subjective: Chart reviewed. Objective: Vital Signs (8 Hrs) Temp Pulse Resp BP Pulse Ox 05/14/18 08:51 98 16 95 05/14/18 07:43 100 12 114/73 96 05/14/18 04:00 98.4 F 107 H 20 117/95 H 93 Intake/Output (24 Hrs) 05/13/18 05/14/18 05/15/18 05:59 05:59 05:59 Intake Total 1240 1460 Output Total 2075 5275 1150 Balance -835 -3815 -1150 Intake: Oral (ml) 1240 1460 Output: Urine (ml) 2075 5275 1150 Toilet 500 Urinal 1575 5275 1150 Other: Weight 142.3 kg 140.7 kg Intake Quantity Yes Sufficient Output Comment Toilet XL BM in hat. Number of Voids Toilet 1 Urinal 1 1 Number of Stools Toilet 1 Result Diagrams: 05/14/18 09:00 05/13/18 03:36 ICD10 Worksheet Patient Problems: Problems Problem Status Onset Congestive heart failure (CHF) Acute
--- NOTE | 2018-05-14 15:11 | HOSPPROG ---
Hospitalist Progress Note Assessment/Plan: 57 year old male with fluid overload 2/2 to CHF here for diuresis. * Acute on chronic systolic CHF and right-sided CHF - EF 30% -still far from euvolemic, with leg edema and probably abdominal edema as well -previous cardiac angios have been negative for coronary disease -continue IV Lasix, lisinopril, beta-kan -also needs iron replacement therapy, see below -in long-term patient could potentially benefit from Bi V pacing and/or AFib ablation but would not be safe to do these until he clearly has control of his edema and leg wounds. He also needs to show some investment in his health and be compliant with medications and follow up before he would be cosidered for BiV pacing. * acute on chronic hypoxemic respiratory failure - short of breath and using 3- 4 L oxygen here compared to usual 2-3 baseline 2-3L -multifactorial with heart failure, pulmonary hypertension, obesity hypoventilation and sleep apnea and COPD * fever, on 05/07, has not recurred since then -no specific signs of infection, following expectantly * Microcytic iron deficiency anemia confirmed by iron studies- one report of questionable hematochezia that was not recorded or ever tested. He had a large BM yesterday with no hematochezia, and H/H has - * Chronic lower extremity wounds due to venous stasis -very large wounds, slowly healing -continue wound care, follow closely for signs of infection; continue diuresis to reduce leg edema -complaints of left leg pain. plain film ordered. * new onset right foot pain today, no history of injury. Plain film with no evidence of acute injury * Afib, chronic, unclear if paroxysmal or permanent -coreg, restart xarelto. monitor for any bleeding. * COPD * Bipolar / severe anxiety disorder -Haldol changed to Zyprexa - doing better, much more alert today -(severe anxiety alternating with severe somnolence) -long history of life trauma - his mother killed his father in murder/ suicide when he was 17 * Morbid obesity BMI 47 -Dr. Whittaker and I have had lengthy conversations with him about the importance of trying to get his weight down, and some of the things he might be able to do to accomplish this, should follow up in clinic for help with this Subjective: no complaints. still winded with exertion. legs achy at times. Objective: Vital Signs Temp Pulse Resp BP Pulse Ox 36.5 C 97 13 94/57 L 96 05/14/18 15:02 05/14/18 15:02 05/14/18 15:02 05/14/18 15:02 05/14/18 15:02 Laboratory Results 05/14/18 09:00 05/14/18 09:00 05/13/18 05/14/18 05/15/18 05:59 05:59 05:59 Intake Total 1240 1460 Output Total 3987 5774 5999 Balance -835 -8775 -1925 - Physical Exam Constitutional: no apparent distress, appears nourished Eyes: PERRL, anicteric sclera Ears, Nose, Mouth, Throat: moist mucous membranes Cardiovascular: regular rate and rhythym, no murmur, rub, or gallop Respiratory: reduced air movement, inspiratory crackles Gastrointestinal: normoactive bowel sounds Genitourinary: no bladder fullness Skin: warm, normal color Musculoskeletal: full muscle strength Neurologic: AAOx3 Psychiatric: interacting appropriately Lymph, Heme, Immunologic: no cervical LAD ICD10 Worksheet Patient Problems: Problems Problem Status Onset Congestive heart failure (CHF) Acute
--- NOTE | 2018-05-14 16:09 | PDCONSULT ---
Laboratory Technical Specialist Note: ASSESSMENT 57 year old male with multiple medical problems including severe sleep apnea with poor PAP adherance admitted with acute decompensated biventricular heart failure. # acute chronic hypoxemic hypercarbic respiratory failure. due to hypervolemia in the setting of positive airway pressure non adherence, dietary indiscretion. # acute on chronic decompensated biventricular systolic heart failure. RV predominant symptoms. As above. # pulmonary hypertension, mild to moderate. multifactorial with both pre and post capillary pulmonary hypertension. no risk factors for group 1 disease. # super morbid obesity # hypervolemia # depression # Fe deficiency anemia. suspect chronic blood loss from GI source. Needs OP work up # afib. on rivaroxaban # bipolar mood d/o. OP haldol changed to zyprexa with improvements in mood # morbid obesity PLAN # continue aggressive diuresis goal net negative at least 2 if not 3 liters per day # spironolactone for PH and diastolic dysfunction # continue IV iron (ordered) for Fe deficiency anemia and heart failure # I will review patient's settings on his trilogy in attempts to increase adherence # restart home NIPPV -okay to use on floor as he uses it as an outpatient # continue supportive care IMAGING Reviewed interpreted radiographic images well as formal radiology reads. 05/03/18 CXR cardiomegaly, bibasilar atelectasis, vascular congestion. Possible right lower lobe consolidation versus atelectasis 05/07/18 TTE LVEF 30-35%, apical, apical cap in apical lateral hypokinesis, left atrium mildly dilated, RVSP 32. Reduced RV systolic function Chief complaint Shortness of breath and leg swelling HPI I was asked by to evaluate this patient for chronic respiratory failure requiring an IPPV and pulmonary hypertension. Liam is a very pleasant 57-year-old morbidly obese male with a history of biventricular heart failure, severe chronic hypoxemic hypercarbic respiratory failure with difficulties adhering to noninvasive ventilation a and pulmonary hypertension who was hospitalized with acute decompensated systolic heart failure and acute on chronic hypoxemic respiratory failure. He reports to 3 weeks of progressive lower extremity edema with weeping legs increasing dyspnea on exertion and mild lightheadedness. Denies chest pains, syncope, nausea, vomiting, rashes skin swelling. He denies ever using IV drugs including IV methamphetamines denies autoimmune disease denies Raynaud phenomenon denies HIV denies thyroid disease. Denies ever having blood clots. Since being admitted he has been diuresed aggressively however still has excessive somnolence and very high bicarb levels. Allergies Latex and penicillins Medications Complete medication reconciliation was performed and was reviewed by me see EMR for details Past medical history COPD, tobacco dependence, pulmonary hypertension, biventricular heart failure, chronic hypercarbic respiratory failure. Social history Has been [facility]. Has been living in [place] near his grandparents. Two brothers of influenza. Extensive smoking history has been cigarette free since pain at [facility] Family history Obesity influenza Review of systems A comprehensive 10 point review of systems was obtained is negative except as per HPI Physical exam Vitals. Reviewed and interpreted. see EMR for details GEN: Resting in bed. Asleep, arousable NEURO: A&Ox3, CN 2-12 GI HEENT: Mallampati 4, thick neck NECK: supple, trachea midline CHEST normal shape, no pes excavatum CVS: rrr no m/r/g PULM: CTA B, no wheezes/rales/rhonchi ABD: Protuberant, nontender nondistended EXT: Tense 2+ bilateral pitting lower extremity edema. Chronic venous stasis changes SKIN: warm, dry, intact, no rash PSYCH CAM negative, appropriate affect Labs Reviewed. Procalcitonin negative, anti proBNP elevated. Iron deficiency anemia with low ferritin.
[2018-05-14] MEDS ORDERED: FUROSEMIDE 40 MG/4 ML VIAL IVP SCH (16:10)
[2018-05-14] MEDS ORDERED: FUROSEMIDE 20 MG/2 ML VIAL IVP ONE ×2 (16:44→19:15)
[2018-05-14] MEDS: NS IV SCH (17:06)
[2018-05-14] MEDS: SODIUM FERRIC GLUCONAT IV SCH (17:06)
[2018-05-14] MEDS: SUCROSE IV SCH (17:06)
[2018-05-14] MEDS: NICOTINE 7 MG/24 HR PATCH TD SCH (21:04)
[2018-05-14] MEDS: GABAPENTIN 300 MG CAP PO SCH (21:05)
[2018-05-14] MEDS: MELATONIN 3 MG TAB PO SCH (21:05)
[2018-05-14] MEDS: diphenhydrAMINE 25 MG CAP PO PRN (23:51)
[2018-05-15] MEDS: FUROSEMIDE 100 MG/10 ML VIAL IVP SCH ×2 (08:30→14:43)
[2018-05-15] MEDS: FERROUS SULFATE 325 MG TAB PO SCH (08:31)
[2018-05-15] MEDS: CARVEDILOL 25 MG TAB PO SCH ×2 (08:31→19:26)
[2018-05-15] MEDS: RIVAROXABAN 20 MG TAB PO SCH (08:31)
[2018-05-15] MEDS: PANTOPRAZOLE SODIUM 40 MG TAB PO SCH (08:31)
[2018-05-15] MEDS: SENNOSIDES 1 TAB PO SCH ×2 (08:31→20:39)
[2018-05-15] MEDS: LISINOPRIL 5 MG TAB PO SCH (08:32)
[2018-05-15] MEDS: OLANZapine 5 MG TAB PO SCH ×2 (08:32→20:39)
[2018-05-15] MEDS: PREGABALIN 25 MG CAP PO SCH ×2 (08:32→20:40)
[2018-05-15] MEDS: SPIRONOLACTONE 25 MG TAB PO SCH (08:32)
[2018-05-15] MEDS: SUCROSE IV SCH (08:53)
[2018-05-15] MEDS: NS IV SCH (08:53)
[2018-05-15] MEDS: SODIUM FERRIC GLUCONAT IV SCH (08:53)
[2018-05-15] MEDS: TIOTROPIUM INHALER 18 MCG/DOSE 5 DOSE/MDI IH SCH (09:05)
[2018-05-15 09:21] LABS: PLATELET COUNT 182 10^3/uL (150-400)
--- NOTE | 2018-05-15 10:55 | ASMTCMCOM ---
CM Note CM Note Notes: Pt will most likely return back to [facility] once medically stable. Therapies continue to recommend SNF. Updates sent to [facility]. CM to follow. Plan: [facility] Date Signed: 05/15/2018 10:55 AM Electronically Signed By:AMADO Issa
--- NOTE | 2018-05-15 12:03 | HOSPPROG ---
Hospitalist Progress Note Assessment/Plan: 57 year old male with fluid overload 2/2 to CHF here for diuresis. * Acute on chronic systolic CHF and right-sided CHF - EF 30% -diuresis with goal net negative at least 2 liters daily -continue IV Lasix, lisinopril, beta-kan -also needs iron replacement therapy, see below -in long-term patient could potentially benefit from Bi V pacing and/or AFib ablation but would not be safe to do these until he clearly has control of his edema and leg wounds. He also needs to show some investment in his health and be compliant with medications and follow up before he would be cosidered for BiV pacing. * acute on chronic hypoxemic respiratory failure - short of breath and using 3- 4 L oxygen here compared to usual 2-3 baseline 2-3L -multifactorial with heart failure, pulmonary hypertension, obesity hypoventilation and sleep apnea and COPD -restart trilogy -pulmonology consulted for assistance with trilogy as well as other issues. * fever, on 05/07, has not recurred since then -no specific signs of infection, following expectantly * Microcytic iron deficiency anemia confirmed by iron studies- one report of questionable hematochezia that was not recorded or ever tested. He had a large BM yesterday with no hematochezia, and H/H has been actually increasing. -cont IV iron -monitor for hematochezia * Chronic lower extremity wounds due to venous stasis -very large wounds, slowly healing -continue wound care, follow closely for signs of infection; continue diuresis to reduce leg edema -complaints of left leg pain. plain film ordered. * Foot pain- no history of injury. Plain film with no evidence of acute injury * Afib, chronic, unclear if paroxysmal or permanent. His Chads is 1-2. -coreg, restart xarelto. monitor for any bleeding. * COPD * Bipolar / severe anxiety disorder -Haldol changed to Zyprexa - doing better, much more alert today -(severe anxiety alternating with severe somnolence) -long history of life trauma - his mother killed his father in murder/ suicide when he was 17 * Morbid obesity BMI 47 - should follow up in clinic for help with this Subjective: no complaints. tired. Tolerated trilogy about an hour last night. Objective: Vital Signs Temp Pulse Resp BP Pulse Ox 36.7 C 94 18 124/88 H 97 05/15/18 07:32 05/15/18 09:09 05/15/18 09:09 05/15/18 07:32 05/15/18 09:09 Laboratory Results 05/15/18 09:10 05/15/18 09:10 05/14/18 05/15/18 05/16/18 05:59 05:59 05:59 Intake Total 1460 1920 840 Output Total 9016 0380 8075 Balance -6308 -2735 -7144 - Physical Exam Constitutional: no apparent distress Eyes: PERRL Ears, Nose, Mouth, Throat: moist mucous membranes Cardiovascular: irregularly irregular, edema, other (still edema to thighs) Respiratory: no respiratory distress, inspiratory crackles Gastrointestinal: normoactive bowel sounds Genitourinary: no bladder fullness Skin: warm Musculoskeletal: full muscle strength Neurologic: AAOx3 Psychiatric: interacting appropriately Lymph, Heme, Immunologic: no cervical LAD ICD10 Worksheet Patient Problems: Problems Problem Status Onset Congestive heart failure (CHF) Acute
[2018-05-15] MEDS: diphenhydrAMINE 25 MG CAP PO PRN ×2 (13:17→19:27)
--- NOTE | 2018-05-15 13:40 | PDINTPN ---
[facility] Progress Note Assessment/Plan: ASSESSMENT 57 year old male with multiple medical problems including severe sleep apnea with poor PAP adherance admitted with acute decompensated biventricular heart failure. # acute on chronic hypoxemic hypercarbic respiratory failure. due to hypervolemia in the setting of positive airway pressure non adherence, dietary indiscretion. Improving with diuresis and NIPPV. Has trilogy vent at home but has not been serviced years. Mask with severe leak. RT changed mask and I changed AVAPs settings 05/15/18 with improvements in efficacy and compliance. Needs OP follow up # acute on chronic decompensated biventricular systolic heart failure. RV predominant symptoms. As above. # pulmonary hypertension, mild to moderate. multifactorial with both pre and post capillary pulmonary hypertension. no risk factors for group 1 disease. # super morbid obesity # hypervolemia # depression # Fe deficiency anemia. suspect chronic blood loss from GI source. Needs OP work up # afib. on rivaroxaban # bipolar mood d/o. OP haldol changed to zyprexa with improvements in mood # morbid obesity PLAN # continue aggressive diuresis goal net negative at least 2 if not 3 liters per day # spironolactone for PH and diastolic dysfunction # short course of diamox now that patient is tolerating NIPPV and diuresing # continue IV iron (ordered) for Fe deficiency anemia and heart failure # AVAPs settings changed 05/15/18, okay to use on floor as this is chronic therapy for him. # new facemask on AVAPs with improvements in airleak (135L/min down to 32 L/min) # continue supportive care # I am happy to see him in clinic if he wishies to establish with a director private music therapy agency for sleep and respiratory failure IMAGING Reviewed interpreted radiographic images well as formal radiology reads. 05/03/18 CXR cardiomegaly, bibasilar atelectasis, vascular congestion. Possible right lower lobe consolidation versus atelectasis 05/07/18 TTE LVEF 30-35%, apical, apical cap in apical lateral hypokinesis, left atrium mildly dilated, RVSP 32. Reduced RV systolic function LABS reviewed. 05/15/18 VBG 7.3/39 05/15/18 13:41 05/15/18 14:10 Subjective: Continues with diuresis, trilogy brought from [facility]. Trialed mask but leaking significantly. On my review he was leaking 132 liters/minute. Settings adjusted the bedside to comfort and efficacy. No fevers, chills, nausea vomiting. Objective: Vital Signs Temp Pulse Resp BP Pulse Ox 36.9 C 95 18 105/61 90 L 05/15/18 11:59 05/15/18 11:59 05/15/18 11:59 05/15/18 11:59 05/15/18 11:59 Laboratory Results 05/15/18 09:10 05/15/18 09:10 05/14/18 05/15/18 05/16/18 05:59 05:59 05:59 Intake Total 1460 1920 940 Output Total 8430 0882 8626 [facility] -4662 -2374 -1135 Physical Exam - Physical Exam General Appearance: alert, no apparent distress EENT: PERRL/EOMI, No scleral icterus (R), No scleral icterus (L) Neck: non-tender, full range of motion Respiratory: chest non-tender, lungs clear, normal breath sounds Cardiac/Chest: normal peripheral pulses, regular rate, rhythm, edema Abdomen: normal bowel sounds, non-tender Skin: normal color, warm/dry Extremities: normal range of motion, non-tender Neuro/Psych: no motor/sensory deficits, alert, normal mood/affect, oriented x 3 ICD10 Worksheet Patient Problems: Problems Problem Status Onset Congestive heart failure (CHF) Acute
[2018-05-15] MEDS: acetaZOLAMIDE 250 MG TAB PO SCH ×2 (14:43→20:39)
[2018-05-15] MEDS: oxyCODONE IR 5 MG TAB PO PRN (19:27)
[2018-05-15] MEDS: MELATONIN 3 MG TAB PO SCH (20:39)
[2018-05-15] MEDS: NICOTINE 7 MG/24 HR PATCH TD SCH (20:40)
[2018-05-15] MEDS: GABAPENTIN 300 MG CAP PO SCH (20:40)
[2018-05-16] MEDS: oxyCODONE IR 5 MG TAB PO PRN ×3 (01:12→20:17)
[2018-05-16] MEDS: diphenhydrAMINE 25 MG CAP PO PRN (01:12)
[2018-05-16 04:13] LABS: PLATELET COUNT 190 10^3/uL (150-400)
[2018-05-16] MEDS: TIOTROPIUM INHALER 18 MCG/DOSE 5 DOSE/MDI IH SCH (09:14)
--- NOTE | 2018-05-16 09:20 | WOCRNPDOC ---
WOHUONG Advanced Assessment Note - Skin Integrity Problem, Advanced Assess Right Lower Leg Venous Stasis Ulcer Dressing Type: Leonides, Mepilex Dressing Description: Clean/Dry, Intact Integumentary Issue Intervention: Dressing Removed Wound Bed Constitution: Healed Skin Integrity Problem Comment: Healed. Dimethicone applied to lower leg. Left Lower Leg Venous Stasis Ulcer Dressing Type: Leonides, Mepilex Dressing Description: Clean/Dry, Intact Exudate Amount: Minimal Exudate Color: Yellow, Brown Exudate Characteristic(s): Serosanguinous Integumentary Issue Intervention: Dressing Changed Cleo Wound Swelling: Mild Wound Bed Color: [place], Red Wound Bed Constitution: Granulation Tissue (80%), Adhered Slough (20%) Wound Edges: Epithelizing, Attached Site Measurement - Head-to-Toe Length X Width X Depth (cm): 7.5x5.5x0.3 Skin Integrity Problem Comment: Wound bed size decreased significantly since last assessed. What was one large wound area has filled in and is currently roughly 5 smaller wounds the largest of which is roughly 3x3.5x0.3 cm surrounded by dry flaky tissue. Wound bed cleaned with ns and gauze. Periwound dry skin coated with Dimethicone cream. Silvasorb applied and covered with Mepilex nonborder foam and wrapped with Leonides. Sobeida IVERSON and RNs Mirta in room for care. Wound care will follow.
--- NOTE | 2018-05-16 09:25 | SOAPPROG ---
SOINDIRA Progress Note Assessment/Plan: Assessment: Problem list: 1. Nonischemic dilated cardiomyopathy ejection fraction 30% 2. Atrial fibrillation appropriately anti coagulated. 4. Bifascicular block with right bundle and left anterior fascicular block 5. COPD 6. Morbid obesity 7. Bipolar disorder 8. Severe venous insufficiency 9. Anemia 10. High risk medication with anticoagulation. Procedures cardiac catheterization done in 2018 revealed normal coronary arteries with pulmonary hypertension. Impression: Patient resting comfortably in his chair. He had no resting shortness of breath, chest pain. Lower extremity swelling is improving. He is stable hemodynamics on good medical therapy. He is appropriately anticoagulated. Continue aggressive medical therapy with rehabilitation. This should include up titration of Coreg as tolerated. Transition to oral diuretic therapy. Weight loss discussed. No further testing required at this time. 05/16/18 09:22 Subjective: Feeling well. No chest pain, shortness of breath. Denies PND orthopnea. He has had no syncope or near syncope. Lower extremity swelling improving. Objective: Medications Generic Name Dose Route Start Last Admin Trade Name Freq PRN Reason Stop Dose Admin Carvedilol 12.5 mg 05/12/18 09:43 05/15/18 19:26 Coreg PO 11/01/18 17:59 12.5 mg BIDMEAL [facility] Furosemide 60 mg 05/15/18 09:00 05/15/18 14:43 Lasix Injection IVP 10/31/18 08:59 60 mg BID@0900,1500 [facility] Lisinopril 5 mg 05/09/18 09:00 05/15/18 08:32 Zestril PO 11/05/18 08:59 5 mg DAILY [facility] Rivaroxaban 20 mg 05/05/18 09:45 05/15/18 08:31 Xarelto PO 11/01/18 09:44 20 mg DAILY [facility] Spironolactone 25 mg 05/14/18 16:10 05/15/18 08:32 Aldactone PO 11/01/18 08:59 25 mg DAILY [facility] Vital Signs Temp Pulse Resp BP Pulse Ox 36.9 C 82 20 103/70 90 L 05/16/18 08:00 05/16/18 09:18 05/16/18 08:00 05/16/18 08:00 05/16/18 09:18 Laboratory Results 05/16/18 03:35 05/16/18 03:35 05/15/18 05/16/18 05/17/18 05:59 05:59 05:59 Intake Total 8344 8283 Output Total 4559 6955 Balance -2410 -8605 Physical Exam - Physical Exam General Appearance: alert, no apparent distress Neck: supple Respiratory: lungs clear Cardiac/Chest: edema, No JVD Abdomen: non-tender, soft Skin: normal color Extremities: other (Bilateral lower extremity venous insufficiency with ulceration) Neuro/Psych: alert ICD10 Worksheet Patient Problems: Problems Problem Status Onset Congestive heart failure (CHF) Acute
[2018-05-16] MEDS: PANTOPRAZOLE SODIUM 40 MG TAB PO SCH (09:46)
[2018-05-16] MEDS: RIVAROXABAN 20 MG TAB PO SCH (09:46)
[2018-05-16] MEDS: SENNOSIDES 1 TAB PO SCH ×2 (09:46→20:17)
[2018-05-16] MEDS: FERROUS SULFATE 325 MG TAB PO SCH (09:46)
[2018-05-16] MEDS: OLANZapine 5 MG TAB PO SCH ×2 (09:46→20:17)
[2018-05-16] MEDS: PREGABALIN 25 MG CAP PO SCH ×2 (09:47→20:17)
[2018-05-16] MEDS: SPIRONOLACTONE 25 MG TAB PO SCH (10:01)
[2018-05-16] MEDS: CARVEDILOL 25 MG TAB PO SCH ×2 (10:01→18:15)
[2018-05-16] MEDS: acetaZOLAMIDE 250 MG TAB PO SCH (10:01)
[2018-05-16] MEDS: LISINOPRIL 5 MG TAB PO SCH (10:01)
[2018-05-16] MEDS: FUROSEMIDE 100 MG/10 ML VIAL IVP SCH ×2 (10:02→16:35)
--- NOTE | 2018-05-16 11:18 | HOSPPROG ---
Hospitalist Progress Note Assessment/Plan: 57 year old male with fluid overload 2/2 to CHF (HFrEF) here for diuresis. * Acute on chronic systolic CHF and right-sided CHF - EF 30% -diuresis with goal net negative at least 2 liters daily -continue IV Lasix, lisinopril, beta-kan -also needs iron replacement therapy, see below -in long-term patient could potentially benefit from Bi V pacing and/or AFib ablation but would not be safe to do these until he clearly has control of his edema and leg wounds. He also needs to show some investment in his health and be compliant with medications and follow up. negative overnight but weight up repeat weight continue lasix * acute on chronic hypoxemic respiratory failure - short of breath and using 3- 4 L oxygen here compared to usual 2-3 baseline 2-3L -multifactorial with heart failure, pulmonary hypertension, obesity hypoventilation and sleep apnea and COPD -restart trilogy -pulmonology consulted for assistance with trilogy as well as other issues. * Microcytic iron deficiency anemia confirmed by iron studies- one report of questionable hematochezia that was not recorded or ever tested. He had a large BM yesterday with no hematochezia, and H/H has been actually increasing. -completed IV iron dc po iron, poorly tolerated -monitor for hematochezia * Chronic lower extremity wounds due to venous stasis -very large wounds, slowly healing -continue wound care, follow closely for signs of infection; continue diuresis to reduce leg edema -complaints of left leg pain. plain film ordered. * Foot pain- no history of injury. Plain film with no evidence of acute injury * Afib, chronic, unclear if paroxysmal or permanent. His Chads is 1-2. -coreg, restart xarelto. monitor for any bleeding. * COPD * Bipolar / severe anxiety disorder -Haldol changed to Zyprexa - doing better, much more alert today -(severe anxiety alternating with severe somnolence) -long history of life trauma - his mother killed his father in murder/ suicide when he was 17 * Morbid obesity BMI 47 - should follow up in clinic for help with this Subjective: case d/w dr mathews Objective: Vital Signs Temp Pulse Resp BP Pulse Ox 36.9 C 114 H 20 80/58 L 90 L 05/16/18 08:00 05/16/18 10:01 05/16/18 08:00 05/16/18 09:38 05/16/18 09:18 Laboratory Results 05/16/18 03:35 05/16/18 03:35 05/15/18 05/16/18 05/17/18 05:59 05:59 05:59 Intake Total 7346 9382 Output Total 3537 7314 Balance -4650 -9030 - Physical Exam Constitutional: no apparent distress, appears nourished Eyes: PERRL, anicteric sclera Ears, Nose, Mouth, Throat: moist mucous membranes, hearing normal Cardiovascular: regular rate and rhythym, no murmur, rub, or gallop Respiratory: no respiratory distress, no rales or rhonchi Gastrointestinal: normoactive bowel sounds, soft, non-tender abdomen Genitourinary: No huang in urethra Skin: warm, other (chronic LE changes) Musculoskeletal: full muscle strength Neurologic: AAOx3 ICD10 Worksheet Patient Problems: Problems Problem Status Onset Congestive heart failure (CHF) Acute
[2018-05-16] MEDS: CALCIUM CARBONATE 500 MG CHEWABLE TAB PO PRN (13:41)
[2018-05-16] MEDS: GABAPENTIN 300 MG CAP PO SCH (20:17)
[2018-05-16] MEDS: MELATONIN 3 MG TAB PO SCH (20:17)
[2018-05-16] MEDS: NICOTINE 7 MG/24 HR PATCH TD SCH (20:18)
[2018-05-17] MEDS: oxyCODONE IR 5 MG TAB PO PRN ×4 (00:37→21:34)
[2018-05-17] MEDS: TIOTROPIUM INHALER 18 MCG/DOSE 5 DOSE/MDI IH SCH (08:30)
[2018-05-17] MEDS: PREGABALIN 25 MG CAP PO SCH ×2 (09:36→20:15)
[2018-05-17] MEDS: LISINOPRIL 5 MG TAB PO SCH (09:37)
[2018-05-17] MEDS: SPIRONOLACTONE 25 MG TAB PO SCH (09:37)
[2018-05-17] MEDS: CARVEDILOL 25 MG TAB PO SCH ×2 (09:37→17:15)
[2018-05-17] MEDS: FUROSEMIDE 40 MG TAB PO SCH ×2 (09:37→15:10)
[2018-05-17] MEDS: OLANZapine 5 MG TAB PO SCH ×2 (09:38→20:16)
[2018-05-17] MEDS: RIVAROXABAN 20 MG TAB PO SCH (09:38)
[2018-05-17] MEDS: SENNOSIDES 1 TAB PO SCH ×2 (09:38→20:15)
[2018-05-17] MEDS: PANTOPRAZOLE SODIUM 40 MG TAB PO SCH (09:38)
--- NOTE | 2018-05-17 11:38 | HOSPPROG ---
Hospitalist Progress Note Objective: Vital Signs Temp Pulse Resp BP Pulse Ox 36.6 C 97 16 77/53 L 93 05/17/18 10:42 05/17/18 10:42 05/17/18 10:42 05/17/18 10:42 05/17/18 10:42 Laboratory Results 05/16/18 03:35 05/17/18 03:45 05/16/18 05/17/18 05/18/18 05:59 05:59 05:59 Intake Total 1750 1245 780 Output Total 5475 1000 830 Balance -3725 245 -50 ICD10 Worksheet Patient Problems: Problems Problem Status Onset Congestive heart failure (CHF) Acute
--- NOTE | 2018-05-17 12:13 | HOSPPROG ---
Hospitalist Progress Note Assessment/Plan: 57 year old male with multiple medical problems including severe sleep apnea with poor PAP adherance admitted with acute decompensated biventricular heart failure. * Acute on chronic systolic CHF and right-sided CHF - EF 30%--due to non ischemic dilated cardiomyopathy, presenting symptoms related mostly to RHF has been diuresed in house aggressively and is now down 20kg since admission. Appears to be nearing euvolemia. Transitioned to oral lasix today. * acute on chronic hypoxemic hypercarbic respiratory failure - short of breath and initialy using 3-4 L oxygen here compared to usual 2-3 baseline -- multifactorial and due to heart failure, pulmonary hypertension, obesity hypoventilation and sleep apnea and COPD as well as non compliance with NIPPV at home. Has trilogy vent at home that was not working, addressed by pulm and RT but will need ongoing OP f/u. *pulmonary HTN: mild to moderate, largely due to untreated leia/ohs as above * Microcytic iron deficiency anemia confirmed by iron studies- completed IV iron, did not tolerate oral iron, will need op colonoscopy * Chronic lower extremity wounds due to venous stasis--continue wound care, no signs of infection * Afib, paroxysmal. His Chads is 1-2. -continue coreg, xarelto. f/u with cardiology for consideration of AVN ablation after 3 months if he continues to be compliant with medications * COPD--no acute exacerbation, continue op meds * Bipolar / severe anxiety disorder -long history of life trauma - his mother killed his father in murder/suicide when he was 17, currently controlled, continue zyprexa * Morbid obesity BMI 47 - should follow up in clinic for help with this * IP status, plan to dc to SNF, likely on 05/18 if accepted Subjective: no acute overnight events, patient feeling overall better, he remains weak but a bit better overall Objective: Vital Signs Temp Pulse Resp BP Pulse Ox 36.6 C 94 18 95/54 L 93 05/17/18 10:42 05/17/18 11:49 05/17/18 11:49 05/17/18 11:49 05/17/18 11:49 Laboratory Results 05/16/18 03:35 05/17/18 03:45 05/16/18 05/17/18 05/18/18 05:59 05:59 05:59 Intake Total 1750 1245 780 Output Total 5475 1000 830 Balance -3725 245 -50 awake alert anicteric op clear rrr no mrg dec bs throughout soft obese trace ble edema warm dry well perfused oriented appropriate - Time Spent With Patient Time Spent with Patient: greater than 35 minutes Time Spent with Patient: Greater than 35 minutes spent on this patients care, greater than 50% of time spent counseling, educating, and coordinating care regarding the above mentioned plan. ICD10 Worksheet Patient Problems: Problems Problem Status Onset Congestive heart failure (CHF) Acute
[2018-05-17] MEDS ORDERED: diphenhydrAMINE 25 MG CAP PO ONE (17:00)
[2018-05-17] MEDS: NICOTINE 7 MG/24 HR PATCH TD SCH (20:15)
[2018-05-17] MEDS: MELATONIN 3 MG TAB PO SCH (20:16)
[2018-05-17] MEDS: GABAPENTIN 300 MG CAP PO SCH (20:16)
[2018-05-18] MEDS: oxyCODONE IR 5 MG TAB PO PRN ×2 (02:07→11:07)
[2018-05-18] MEDS: TIOTROPIUM INHALER 18 MCG/DOSE 5 DOSE/MDI IH SCH (08:41)
[2018-05-18 11:04] VITALS: BP 95/55
[2018-05-18] MEDS: CARVEDILOL 25 MG TAB PO SCH (11:04)
[2018-05-18] MEDS: PANTOPRAZOLE SODIUM 40 MG TAB PO SCH (11:05)
[2018-05-18] MEDS: PREGABALIN 25 MG CAP PO SCH (11:05)
[2018-05-18] MEDS: LISINOPRIL 5 MG TAB PO SCH (11:05)
[2018-05-18] MEDS: SPIRONOLACTONE 25 MG TAB PO SCH (11:05)
[2018-05-18] MEDS: OLANZapine 5 MG TAB PO SCH (11:06)
[2018-05-18] MEDS: FUROSEMIDE 40 MG TAB PO SCH (11:06)
[2018-05-18] MEDS: SENNOSIDES 1 TAB PO SCH (11:07)
[2018-05-18] MEDS: RIVAROXABAN 20 MG TAB PO SCH (11:07)
--- NOTE | 2018-05-18 11:26 | PDIAF ---
- Diagnosis Code Status: Full Code - Medication Management Additional Medication Instructions: HOLD SPIRONOLACTONE UNTIL Wednesday05/23/2018. THEN RESUME AT 25mg DAILY. Discharge Medications: electronically signed and located in the Home Medication List. [facility] Care - Routine: N/A - Orders Services needed: Physical Therapy, Occupational Therapy Diet Texture: Regular Texture Diet, Thin Liquids, Meds Whole w/Liquids Weigh Patient: daily Jaffe: Not applicable Additional Instructions: Please call [facility] and make appointment to see Dr. Martini in 1 week from your discharge. [phone]. Do NOT take your spironolactone until Tuesday 05/23. Then you can resume at 25mg daily. We have increased your lasix from 40mg twice daily to 60mg twice daily. We have decreased your lisinopril from 20mg daily to 5mg daily. We have decreased your carvedilol from 25mg twice daily to 12.5mg twice daily. We have stopped your haloperidol and switched this to olanzapine 5mg twice daily. Please get blood drawn to monitor kidney function and electrolytes on 05/20. - Labs/Radiology BMP Date: 05/20/18 - Follow Up Care Current Providers and Referrals: David Martini MD [Medical Doctor] - 05/25/18 3:30 pm () NONE *PRIMARY CARE P,. [Primary Care Provider] - As per Instructions
--- NOTE | 2018-05-18 11:27 | PDDCSUM ---
Discharge Summary Discharge Summary: Date of Admission: 05/04/2018 Date of Discharge: 05/18/2018 Consultants: cardiology, pulmonology, EP, wound care Studies: TTE Discharge Diagnoses: 1. Acute on chronic biventricular CHF (non-ischemic dilated cardiomyopathy LVEF 30%) 2. Acute on chronic hypoxemic hypercarbic respiratory failure 3. Pulmonary hypertension 4. Untreated IDA/OHS 5. Acute renal insufficiency 6. Iron deficiency anemia 7. Chronic lower extremity venous stasis and wounds, currently not infected 8. Persistent atrial fibrillation on anticoagulation 9. COPD 10. Bipolar disorder, severe anxiety disorder 11. Morbid obesity Brief Hospital Course: 57yo M with multiple medical problems including severe sleep apnea with poor PAP adherence presented with worsening leg swelling and dyspnea. He was treated for a heart failure exacerbation with IV diuretics and a short course of diamox. Cardiology was consulted. He did not undergo any ischemic evaluation ( this was done recently). He clinically improved and weight decreased from 159-> 141kg at discharge. His PO lasix dose was increased. He was requiring his baseline 2-4L/min of supplemental oxygen at discharge. Pulmonology was consulted who titrated his Trilogy machine. Regarding his anemia, he was administered IV iron. He did not tolerate PO iron. He will need to have this further investigated as an outpatient with endoscopies. EP was consulted to discuss management of his atrial fibrillation and possible BiV ICD placement. They would consider BiV ICD with AV node ablation if he demonstrates medical compliance and his bilateral leg wounds are healed. They would like to see him in clinic in 3 months to assess. Regarding his bipolar disorder, his haloperidol was stopped due to increeased somnolence and switched to olanzapine with good result. Lastly, he was developing mild renal insufficiency over the last few days of this hospitalization. This is likely related medication side effect and less likely volume contraction. I have instructed him to hold his spironolactone for 4 days. Medications: Please refer to EMR for complete list. Follow Up Plan: 1. BMP in 3 days to monitor renal function and electrolytes 2. Clinic appt with Dr Martini next week 3. Needs outpatient colonoscopy 4. EP clinic appointment in 3 months 5. Establish in pulm clinic (Dr Marshall) Physical Exam: Vitals and telemetry reviewed, SBP 80-90s. Alert and oriented, obese, distant heart sounds, irregularly irregular but rates controlled, lungs clear, abdomen soft and nt, legs with improving edema, they are wrapped.
--- NOTE | 2018-05-18 11:58 | ASMTLACE ---
KRANTHIE Length of stay for Answers: 14 days or more current admission Acuity / Level of Answers: Yes Care: Did the patient have an inpatient admission? Comorbidities - select Answers: Chronic pulmonary disease all that apply Congestive heart failure Other Notes: AFib # of Emergency department Answers: 1-2 visits in the last 6 months Social determinants Answers: Mental health diagnosis (anxiety, depression, pers onality disorders, etc.) Score: 19 Date Signed: 05/18/2018 11:58 AM Electronically Signed By:AMADO Issa
--- NOTE | 2018-05-18 12:04 | ASMTDCNOTE ---
Case Management Discharge Discharge Order Complete? Answers: Yes Patient to Obtain Answers: Other Notes: [facility] Medications Transportation Arranged Answers: [facility] W/C Transport will Pick (Date 05/18/2018 12:00 AM & Time) EMTALA Complete Answers: No Case Management Transport Answers: No Form Complete Faxed Final Orders Answers: Yes Agency/Facility Transfer Answers: Yes Report Printed & Faxed to Receiving Agency Family Notified Answers: No Discharge Comments Notes: Pts case discussed in tx rounds. Pt is being d/c'd today to [facility]. DC orders sent. SINDI Miguel will call to give report. CM available for changes. Plan: [facility] Date Signed: 05/18/2018 12:03 PM Electronically Signed By:AMADO Issa
--- NOTE | 2018-05-18 13:12 | ASDISCHSUM ---
Discharge Information Plan Status:SNF Medically Cleared to Leave: Discharge Date: D/C Disposition: ADT D/C Disposition:Jail Facility Projected Discharge Date:05/07/2018 11:00 AM Transportation at D/C: Discharge Delay Reason: Follow-Up Date:05/07/2018 11:00 AM Discharge Slot: Final Diagnosis: Placement Information Referral Type:*Senior Living/SNF Referral ID:[id number] Provider Name:[facility] Address 1:[address] Address 2: Fax Number: [facility]:[place] Selection Factors: State:[place] Patient Contact Information Contact Name:MONTY Relationship: Address:[address] City:[place] Alternate Phone: State/Zip Code:[place] [address] Email: Financial Information Financial Class:Medicaid Primary Plan Desc[place] Primary Plan Number:[id number] Secondary Plan Desc: Secondary Plan Number: Assessment Information LACE LACE Length of stay for Answers: 14 days or more current admission Acuity / Level of Answers: Yes Care: Did the patient have an inpatient admission? Comorbidities - select Answers: Chronic pulmonary disease all that apply Congestive heart failure Other Notes: AFib # of Emergency department Answers: 1-2 visits in the last 6 months Social determinants Answers: Mental health diagnosis (anxiety, depression, pers onality disorders, etc.) Score: 19 Date Signed: 05/18/2018 11:58 AM Electronically Signed By:AMADO Issa [facility] CM Progress Note CM Note CM Note Notes: 05/05/2018 Case Management Note Discussed pt during rounds this morning. Pt admitted for dyspnea and possible left leg cellulitis. Pt is on a 30 day stay at [facility] from [facility]. Faxed updates to [facility]. David visited onsite. Please see spiritual care note. Case Management d/c poc: return to [facility]. Case Management to follow. Date Signed: 05/05/2018 02:11 PM Electronically Signed By:Antonia Hopson RN [facility] CM Progress Note CM Note CM Note Notes: 05/08/2018 Case Management Note Discussed pt during rounds today. Pt tolerating switch to Zyprexa from Haldol well. Elsie Sheldon consult on Wednesday. Faxed updates to [facility]. Case Management d/c poc: [facility] to complete 30 day stay. Case Management to follow. Date Signed: 05/08/2018 12:21 PM Electronically Signed By:Antonia Hopson RN [facility] CM Progress Note CM Note CM Note Notes: Pts case discussed in tx rounds. Pt is not medically stable to d/c at this time. Elsie Sheldon met w/ pt yesterday. Therapies continue to recommend SNF. Updates sent to [facility] and pt will likely return. Plan: [facility] Date Signed: 05/10/2018 02:41 PM Electronically Signed By:AMADO Issa [facility] CM Progress Note CM Note CM Note Notes: 05/12/2018 Case Management Note Discussed pt during rounds this morning. David from [facility] visited onsite. Per David 30 day medicaid stay includes hospital days and pt has now completed his 30 day obligation. Pt is welcome to return to [facility] per PT and OT recommendations without the need for new PASRR or new ULTC 100. D/C date remains unclear. Case Management d/c poc: return to [facility] per therapy recommendations. Case Management to follow. Date Signed: 05/12/2018 11:46 AM Electronically Signed By:Antonia Hopson RN [facility] CM Progress Note CM Note CM Note Notes: Pt will most likely return back to [facility] once medically stable. Therapies continue to recommend SNF. Updates sent to [facility]. CM to follow. Plan: [facility] Date Signed: 05/15/2018 10:55 AM Electronically Signed By:AMADO Issa Case Management Discharge Plan Note Case Management Discharge Discharge Order Complete? Answers: Yes Patient to Obtain Answers: Other Notes: [facility] SNF Medications Transportation Arranged Answers: [facility] W/C Transport will Pick (Date 05/18/2018 12:00 AM & Time) ALICIA Complete Answers: No Case Management Transport Answers: No Form Complete Faxed Final Orders Answers: Yes Agency/Facility Transfer Answers: Yes Report Printed & Faxed to Receiving Agency Family Notified Answers: No Discharge Comments Notes: Pts case discussed in tx rounds. Pt is being d/c'd today to [facility]. DC orders sent. SINDI Miguel will call to give report. CM available for changes. [facility] Date Signed: 05/18/2018 12:03 PM Electronically Signed By:AMADO Issa Intervention Information
== END 2018-05-18 13:22 | DRG 194 ==
LOC: EDUNIT# → F2W 05-04 01:36
PROVIDERS: ADMIT Student in an Organized Health Care Education/Training Program; ATTEND Student in an Organized Health Care Education/Training Program
DX: I50.33 Acute on chronic diastolic (congestive) heart failure (principal); J96.21 Acute and chronic respiratory failure with hypoxia; J96.22 Acute and chronic respiratory failure with hypercapnia; N17.9 Acute kidney failure, unspecified; I48.1 Persistent atrial fibrillation; D62 Acute posthemorrhagic anemia; I87.8 Other specified disorders of veins; E66.2 Morbid (severe) obesity with alveolar hypoventilation; J44.9 Chronic obstructive pulmonary disease, unspecified; I27.20 Pulmonary hypertension, unspecified; F31.9 Bipolar disorder, unspecified; Z99.81 Dependence on supplemental oxygen; Z87.891 Personal history of nicotine dependence; Z79.01 Long term (current) use of anticoagulants; Z68.43 Body mass index [BMI] 50.0-59.9, adult
CPT/HCPCS: 84484-ER; 92610-GN; 96374; 97116-GP; 97162-GP; 97166-GO; 97530-GO; 97530-GP; 97535-GO; G0378; J1940; J2060; J2916; J7613